=== PATIENT | male | born 1940 | race Caucasian/White ===

== ENCOUNTER 2017-04-09 16:46 | Inpatient (IN) | payer MEDICARE, OTHER ==
[~2017-04-09] VITALS: Ht 172.7 cm; Wt 120.2 kg
[2017-04-09 18:03] LABS: Basophils # (auto) 0.1 uL; Eosinophils # (auto) 0 uL; Hemoglobin 11.7 g/dL (13.5-17.5); Lymphocytes # (auto) 0.9 uL; Neutrophils # (auto) 5.9 uL; Nucleated Red Blood Cells % 0.2 %; White Blood Cell 7.9 10^3/uL (4.4-10.8)
[2017-04-09 18:04] LABS: Lymphocytes % (auto) 11.2 % (10.0-50.0); Mean Corpuscular Hemoglobin 25.3 pg (28.0-32.0); Mean Corpuscular Hgb Conc. 32.4 g/dL (32.0-36.0); Mean Corpuscular Volume 78.2 fL (80.0-100.0); Monocytes % (auto) 12.8 % (0.0-12.0); Platelet Count (auto) 183 10^3/uL (140-450)
[2017-04-09 18:21] LABS: Albumin 3.2 g/dL (3.4-5.0); BUN/Creatinine Ratio 14.4; Calcium 7.7 mg/dL (8.5-10.1); Magnesium 1.7 mg/dL (1.6-2.6); Potassium 3.1 mmol/L (3.5-5.1)
[2017-04-09 18:26] LABS: Bilirubin, Total 1.5 mg/dL (0.2-1.0)
[2017-04-09] MEDS ORDERED: SODIUM CHLORIDE 0.9% 1,000 ML IV ONE (18:36)
[2017-04-09] MEDS ORDERED: MORPHINE SULF INJ 2 MG/ML SYRINGE 1ML IV PRN (21:45)
[2017-04-09] MEDS ORDERED: ONDANSETRON HCL 4 MG/2 ML VIAL IV PRN (21:45)
[2017-04-09] MEDS ORDERED: NITROGLYCERIN 0.4 MG SL TAB SL PRN (21:45)
[2017-04-09] MEDS ORDERED: DEXTROSE (50%) 50ML SYRG IV PRN (21:45)
[2017-04-09] MEDS ORDERED: ACETAMINOPHEN 325 MG TAB PO PRN (21:45)
[2017-04-09] MEDS ORDERED: TEMAZEPAM 15 MG CAP PO PRN (21:45)
[2017-04-09] MEDS ORDERED: cefTRIAXone 1GM/10ml IVPUSH 10 ML IV ONE (21:45)
[2017-04-09] MEDS ORDERED: HYDROcodone-ACET 5/325MG TAB PO PRN (21:45)
[2017-04-09 22:00] VITALS: BP 119/68
[2017-04-09] MEDS ORDERED: POTASSIUM CHL 20 Meq TABLET PO ONE (22:00)
[2017-04-09] MEDS: CARVEDILOL 3.125 MG TAB PO SCH (22:00)
[2017-04-09 22:47] LABS: INR 2.33 (0.9-1.15); Partial Thromboplastin Time 39.1 sec (22.64-33.71); Prothrombin Time 25.6 sec (9.37-12.3)
[2017-04-09] MEDS: PRAVASTATIN SODIUM 20 MG TAB PO SCH (22:53)
[2017-04-10] VITALS (9 sets, daily range): BP systolic 75–141; BP diastolic 43–84
[2017-04-10] MEDS: InsuLIN REG 1unit/0.01ml Soln (100units/ml) SC SCH ×5 (00:40→21:42)
[2017-04-10] MEDS: ACCU-CHEK COMFORT CURVE STRIP VI SCH ×5 (01:05→21:42)
[2017-04-10] MEDS: glipiZIDE 5 MG TAB PO SCH (05:41)
[2017-04-10 06:29] LABS: Basophils # (auto) 0.1 uL; Eosinophils # (auto) 0 uL; Monocytes # (auto) 1.1 uL; Platelet Count (auto) 159 10^3/uL (140-450)
[2017-04-10 06:32] LABS: Basophils % (auto) 1.1 % (0.0-2.0); Eosinophils % (auto) 0.1 % (0.0-7.0); Hematocrit 33.4 % (41.0-53.0); Lymphocytes # (auto) 0.9 uL; Lymphocytes % (auto) 12.9 % (10.0-50.0); Mean Corpuscular Hemoglobin 25.8 pg (28.0-32.0); Mean Corpuscular Hgb Conc. 33.1 g/dL (32.0-36.0); Mean Corpuscular Volume 77.9 fL (80.0-100.0); Monocytes % (auto) 15.9 % (0.0-12.0); Neutrophils # (auto) 4.8 uL; Nucleated Red Blood Cells % 0.1 %; Red Blood Cells 4.28 10^6/uL (4.5-5.90); White Blood Cell 6.9 10^3/uL (4.4-10.8)
[2017-04-10 06:33] LABS: Red Cell Distribution Width 20.3 % (11.8-14.3)
[2017-04-10 06:43] LABS: Albumin 3.1 g/dL (3.4-5.0); BUN/Creatinine Ratio 17.8; Calcium 8.1 mg/dL (8.5-10.1); Potassium 3.2 mmol/L (3.5-5.1)
[2017-04-10 06:45] LABS: Bilirubin, Total 1.1 mg/dL (0.2-1.0); Total Protein 7.3 g/dL (6.4-8.2)
[2017-04-10] MEDS: LISINOPRIL 10 MG TAB PO SCH (10:00)
[2017-04-10] MEDS: ISOSORBIDE MONONITRATE 60 MG TAB PO SCH (10:00)
[2017-04-10] MEDS: HCTZ 25 MG TAB PO SCH (10:00)
[2017-04-10] MEDS ORDERED: PANTOPRAZOLE 40 MG TAB PO SCH (10:00)
[2017-04-10] MEDS: cefTRIAXone 1GM/10ml IVPUSH 10 ML IV SCH (10:34)
[2017-04-10] MEDS: CARVEDILOL 3.125 MG TAB PO SCH ×2 (10:39→21:42)
[2017-04-10] MEDS ORDERED: WARF5TAB71 PO (10:50)
[2017-04-10] MEDS ORDERED: WARF2.5T39 PO (10:50)
[2017-04-10] MEDS ORDERED: LORazepam 2MG/ML-1ML VIAL IV PRN ×2 (17:00)
[2017-04-10] MEDS ORDERED: WARFARIN SODIUM 5 MG TAB PO ONE (17:00)
[2017-04-10] MEDS: ALBUTEROL SULF 2.5 MG/0.5ML(0.5%) NEB SOLN NEB SCH (19:27)
[2017-04-10] MEDS: PRAVASTATIN SODIUM 20 MG TAB PO SCH (21:42)
[2017-04-10] MEDS ORDERED: ATROPINE SULFATE 0.4 MG/1 ML VIAL IV ONE (23:00)
[2017-04-10] MEDS: PROPOFOL 100 ML IV SCH (23:03)
[2017-04-10] MEDS ORDERED: PROPOFOL 100 ML IV ONE (23:03)
[2017-04-10 23:08] LABS: Basophils # (auto) 0.1 uL; Eosinophils # (auto) 0 uL; Eosinophils % (auto) 0.2 % (0.0-7.0); Monocytes # (auto) 1.8 uL
[2017-04-10 23:10] LABS: Basophils % (auto) 0.8 % (0.0-2.0); Hematocrit 39.9 % (41.0-53.0); Hemoglobin 12.4 g/dL (13.5-17.5); Lymphocytes % (auto) 31.9 % (10.0-50.0); Mean Corpuscular Hemoglobin 25.3 pg (28.0-32.0); Mean Corpuscular Hgb Conc. 31.2 g/dL (32.0-36.0); Mean Corpuscular Volume 81.2 fL (80.0-100.0); Monocytes % (auto) 14.3 % (0.0-12.0); Neutrophils # (auto) 6.7 uL; Neutrophils % (auto) 52.8 % (37.0-80.0); Nucleated Red Blood Cells % 0.1 %; Platelet Count (auto) 192 10^3/uL (140-450); Red Blood Cells 4.91 10^6/uL (4.5-5.90); White Blood Cell 12.6 10^3/uL (4.4-10.8)
[2017-04-10 23:41] LABS: Red Cell Distribution Width 21.1 % (11.8-14.3)
[2017-04-10 23:46] LABS: Potassium 3.9 mmol/L (3.5-5.1)
[2017-04-10 23:47] LABS: Albumin 3.2 g/dL (3.4-5.0); BUN/Creatinine Ratio 14.1; Bilirubin, Total 0.9 mg/dL (0.2-1.0); Calcium 8.5 mg/dL (8.5-10.1); Total Protein 8.1 g/dL (6.4-8.2)
[2017-04-10] MEDS ORDERED: MIDAZOLAM DRIP 100 mg/100mL NS 100 ML IV ONE (23:59)
[2017-04-11] VITALS (88 sets, daily range): BP systolic 64–135; BP diastolic 41–86
[2017-04-11] MEDS ORDERED: MIDAZOLAM DRIP 100 mg/100mL NS 100 ML IV SCH (00:39)
[2017-04-11] MEDS: NOREPINEPHRINE 8 MG/250ML KIT 250 ML IV SCH (00:39)
[2017-04-11] MEDS: SODIUM CHLORIDE 0.9% 1,000 ML IV SCH ×3 (01:00→21:00)
[2017-04-11] MEDS ORDERED: ACCU-CHEK COMFORT CURVE STRIP VI ONE (01:00)
[2017-04-11] MEDS: ACETAMINOPHEN 650 mg PER 20 mL UD GT PRN (03:30)
[2017-04-11] MEDS: InsuLIN REG 1unit/0.01ml Soln (100units/ml) SC SCH ×3 (06:00→18:22)
[2017-04-11] MEDS: ALBUTEROL SULF 2.5 MG/0.5ML(0.5%) NEB SOLN NEB SCH ×3 (06:00→22:17)
[2017-04-11] MEDS: ACCU-CHEK COMFORT CURVE STRIP VI SCH ×3 (06:00→18:00)
[2017-04-11 06:04] LABS: Basophils # (auto) 0 uL; Basophils % (auto) 0.3 % (0.0-2.0); Eosinophils # (auto) 0 uL; Nucleated Red Blood Cells % 0.1 %
[2017-04-11 06:07] LABS: Hematocrit 37.2 % (41.0-53.0); Hemoglobin 11.9 g/dL (13.5-17.5); Lymphocytes % (auto) 10.5 % (10.0-50.0); Mean Corpuscular Hemoglobin 25.8 pg (28.0-32.0); Mean Corpuscular Volume 80.7 fL (80.0-100.0); Monocytes # (auto) 0.8 uL; Monocytes % (auto) 8.9 % (0.0-12.0); Neutrophils # (auto) 7.3 uL; Neutrophils % (auto) 80.3 % (37.0-80.0); Platelet Count (auto) 120 10^3/uL (140-450); Red Blood Cells 4.61 10^6/uL (4.5-5.90); White Blood Cell 9.1 10^3/uL (4.4-10.8)
[2017-04-11 06:15] LABS: INR 1.77 (0.9-1.15); Partial Thromboplastin Time 36.7 sec (22.64-33.71); Prothrombin Time 19.4 sec (9.37-12.3)
[2017-04-11 06:16] LABS: Red Cell Distribution Width 20.7 % (11.8-14.3)
[2017-04-11] MEDS: MIDAZOLAM DRIP 100 mg/100mL NS 100 ML IV SCH ×2 (06:30→16:39)
[2017-04-11 06:47] LABS: % Iron Saturation 4.2 % (20-55)
[2017-04-11] MEDS: glipiZIDE 5 MG TAB PO SCH (07:00)
[2017-04-11] MEDS: cefTRIAXone 1GM/10ml IVPUSH 10 ML IV SCH (08:54)
[2017-04-11 09:03] LABS: Potassium 3.2 mmol/L (3.5-5.1)
[2017-04-11 09:04] LABS: BUN/Creatinine Ratio 19.2; Bilirubin, Total 0.6 mg/dL (0.2-1.0); Calcium 7.5 mg/dL (8.5-10.1); Total Protein 7.1 g/dL (6.4-8.2)
[2017-04-11 09:05] LABS: Albumin 2.9 g/dL (3.4-5.0)
[2017-04-11] MEDS ORDERED: POTASSIUM CHLORIDE 40 MEQ, LIDOCAINE 1% (LOCAL ANESTH.) 4 ML in SODIUM CHL 0.9% 100 ML IV ONE (09:30)
[2017-04-11] MEDS: CARVEDILOL 3.125 MG TAB PO SCH ×2 (09:34→22:00)
[2017-04-11] MEDS: HCTZ 25 MG TAB PO SCH (09:34)
[2017-04-11] MEDS: PANTOPRAZOLE 40 MG/10 ML VIAL IV SCH (09:34)
[2017-04-11] MEDS: LISINOPRIL 10 MG TAB PO SCH (09:35)
[2017-04-11] MEDS: ISOSORBIDE MONONITRATE 60 MG TAB PO SCH (09:35)
[2017-04-11 09:50] LABS: Alcohol, Urine < 3.0 mg/dL (0-5); Amphetamine Screen, Urine NEGATIVE (NEGATIVE); Barbiturate Scree,Urine NEGATIVE (NEGATIVE); Benzodiazephine Screen, Urine POSITIVE (NEGATIVE); Cannabinoid Screen, Urine NEGATIVE (NEGATIVE); Cocaine Screen, Urine NEGATIVE (NEGATIVE); Opiate Scree,Urine NEGATIVE (NEGATIVE); Phencyclidine Screen, Urine NEGATIVE (NEGATIVE)
[2017-04-11] MEDS: LINEZOLID 600MG/300ML 300 ML IV SCH (14:37)
[2017-04-11] MEDS ORDERED: WARFARIN SODIUM 2.5 MG TAB PO ONE (17:00)
[2017-04-11] MEDS: PIPERACILLIN-TAZOB 3.375GM 50-150ml IV SCH (18:40)
[2017-04-11] MEDS: PRAVASTATIN SODIUM 20 MG TAB PO SCH (22:00)
[2017-04-12] VITALS (92 sets, daily range): BP systolic 82–140; BP diastolic 31–90
[2017-04-12] MEDS: ACCU-CHEK COMFORT CURVE STRIP VI SCH ×4 (00:17→18:07)
[2017-04-12] MEDS: PIPERACILLIN-TAZOB 3.375GM 50-150ml IV SCH ×4 (00:17→17:55)
[2017-04-12] MEDS: PROPOFOL 100 ML IV SCH (00:23)
[2017-04-12] MEDS: NOREPINEPHRINE 8 MG/250ML KIT 250 ML IV SCH (00:39)
[2017-04-12] MEDS: LINEZOLID 600MG/300ML 300 ML IV SCH ×2 (03:00→15:54)
[2017-04-12 04:29] LABS: Basophils # (auto) 0 uL; Eosinophils # (auto) 0 uL; Monocytes # (auto) 0.7 uL; White Blood Cell 6.4 10^3/uL (4.4-10.8)
[2017-04-12 04:32] LABS: Basophils % (auto) 0.6 % (0.0-2.0); Eosinophils % (auto) 0.5 % (0.0-7.0); Hematocrit 36.7 % (41.0-53.0); Lymphocytes # (auto) 1.3 uL; Lymphocytes % (auto) 20.2 % (10.0-50.0); Mean Corpuscular Hemoglobin 25.7 pg (28.0-32.0); Mean Corpuscular Hgb Conc. 32.8 g/dL (32.0-36.0); Mean Corpuscular Volume 78.4 fL (80.0-100.0); Monocytes % (auto) 11.3 % (0.0-12.0); Neutrophils # (auto) 4.3 uL; Neutrophils % (auto) 67.4 % (37.0-80.0); Nucleated Red Blood Cells % 0.2 %; Platelet Count (auto) 108 10^3/uL (140-450); Red Blood Cells 4.68 10^6/uL (4.5-5.90)
[2017-04-12 04:37] LABS: Calcium 7.9 mg/dL (8.5-10.1); Potassium 3.7 mmol/L (3.5-5.1)
[2017-04-12 04:38] LABS: Red Cell Distribution Width 20.8 % (11.8-14.3)
[2017-04-12 04:39] LABS: BUN/Creatinine Ratio 19.2
[2017-04-12 04:47] LABS: INR 1.92 (0.9-1.15); Partial Thromboplastin Time 40.5 sec (22.64-33.71); Prothrombin Time 21.1 sec (9.37-12.3)
[2017-04-12] MEDS: InsuLIN REG 1unit/0.01ml Soln (100units/ml) SC SCH ×4 (06:00→18:00)
[2017-04-12] MEDS: ALBUTEROL SULF 2.5 MG/0.5ML(0.5%) NEB SOLN NEB SCH ×3 (06:12→22:01)
[2017-04-12] MEDS: glipiZIDE 5 MG TAB PO SCH (06:41)
[2017-04-12] MEDS: SODIUM CHLORIDE 0.9% 1,000 ML IV SCH ×2 (06:44→17:09)
[2017-04-12] MEDS ORDERED: CHLORHEXIDINE 0.12% ORAL rinse 473ML MT ONE (08:29)
[2017-04-12] MEDS: ACETAMINOPHEN 650 mg PER 20 mL UD GT PRN (08:30)
[2017-04-12] MEDS: LISINOPRIL 10 MG TAB PO SCH (10:00)
[2017-04-12] MEDS: HCTZ 25 MG TAB PO SCH (10:00)
[2017-04-12] MEDS: ISOSORBIDE MONONITRATE 60 MG TAB PO SCH (10:00)
[2017-04-12] MEDS: PANTOPRAZOLE 40 MG/10 ML VIAL IV SCH (10:29)
[2017-04-12] MEDS: CARVEDILOL 3.125 MG TAB PO SCH ×2 (10:29→22:18)
[2017-04-12] MEDS ORDERED: OSELTAMIVIR 75 MG CAP PO ONE (13:00)
[2017-04-12] MEDS ORDERED: MIDAZOLAM HCL 1MG/1ML-2 ML VIAL IV PRN (13:00)
[2017-04-12] MEDS ORDERED: WARFARIN SODIUM 5 MG TAB PO SCH (17:00)
[2017-04-12] MEDS: PRAVASTATIN SODIUM 20 MG TAB PO SCH (22:18)
[2017-04-12] MEDS: OSELTAMIVIR 75 MG CAP PO SCH (22:18)
[2017-04-13] VITALS (60 sets, daily range): BP systolic 111–143; BP diastolic 58–94
[2017-04-13] MEDS: MIDAZOLAM DRIP 100 mg/100mL NS 100 ML IV SCH
[2017-04-13] MEDS: NOREPINEPHRINE 8 MG/250ML KIT 250 ML IV SCH (00:39)
[2017-04-13] MEDS: SODIUM CHLORIDE 0.9% 1,000 ML IV SCH ×3 (03:00→23:59)
[2017-04-13 03:51] LABS: Basophils # (auto) 0 uL; Eosinophils # (auto) 0 uL; Hematocrit 34.3 % (41.0-53.0); Hemoglobin 11.2 g/dL (13.5-17.5); Mean Corpuscular Hgb Conc. 32.5 g/dL (32.0-36.0); Nucleated Red Blood Cells % 0.1 %; White Blood Cell 6.2 10^3/uL (4.4-10.8)
[2017-04-13 03:53] LABS: Basophils % (auto) 0.6 % (0.0-2.0); Eosinophils % (auto) 0.6 % (0.0-7.0); Lymphocytes # (auto) 1.5 uL; Lymphocytes % (auto) 23.8 % (10.0-50.0); Mean Corpuscular Hemoglobin 25.6 pg (28.0-32.0); Mean Corpuscular Volume 78.6 fL (80.0-100.0); Monocytes # (auto) 0.5 uL; Monocytes % (auto) 8.2 % (0.0-12.0); Neutrophils # (auto) 4.1 uL; Neutrophils % (auto) 66.8 % (37.0-80.0); Platelet Count (auto) 108 10^3/uL (140-450); Red Blood Cells 4.36 10^6/uL (4.5-5.90)
[2017-04-13] MEDS: LINEZOLID 600MG/300ML 300 ML IV SCH ×2 (03:57→15:12)
[2017-04-13 03:58] LABS: INR 2.94 (0.9-1.15); Partial Thromboplastin Time 46.9 sec (22.64-33.71); Prothrombin Time 32.4 sec (9.37-12.3)
[2017-04-13 04:18] LABS: Red Cell Distribution Width 21.1 % (11.8-14.3)
[2017-04-13 04:58] LABS: Calcium 7.8 mg/dL (8.5-10.1); Potassium 3.6 mmol/L (3.5-5.1)
[2017-04-13] MEDS: ACCU-CHEK COMFORT CURVE STRIP VI SCH ×4 (05:27→17:47)
[2017-04-13] MEDS: InsuLIN REG 1unit/0.01ml Soln (100units/ml) SC SCH ×5 (05:27→18:00)
[2017-04-13] MEDS: ALBUTEROL SULF 2.5 MG/0.5ML(0.5%) NEB SOLN NEB SCH ×3 (05:45→22:26)
[2017-04-13] MEDS: PIPERACILLIN-TAZOB 3.375GM 50-150ml IV SCH ×4 (06:11→17:47)
[2017-04-13] MEDS: glipiZIDE 5 MG TAB PO SCH (07:53)
[2017-04-13] MEDS: CARVEDILOL 3.125 MG TAB PO SCH ×2 (09:45→23:01)
[2017-04-13] MEDS: LISINOPRIL 10 MG TAB PO SCH (09:45)
[2017-04-13] MEDS: PANTOPRAZOLE 40 MG/10 ML VIAL IV SCH (09:45)
[2017-04-13] MEDS: ISOSORBIDE MONONITRATE 60 MG TAB PO SCH (09:45)
[2017-04-13] MEDS: HCTZ 25 MG TAB PO SCH (09:45)
[2017-04-13] MEDS: OSELTAMIVIR 75 MG CAP PO SCH ×2 (09:45→23:01)
[2017-04-13] MEDS: MIDAZOLAM DRIP 50 mg/50mL 50 ML IV SCH (11:58)
[2017-04-13] MEDS ORDERED: Diabetisource AC 1 Liter GT SCH (14:45)
[2017-04-13] MEDS: PRAVASTATIN SODIUM 20 MG TAB PO SCH (23:01)
[2017-04-14] VITALS (100 sets, daily range): BP systolic 81–157; BP diastolic 34–127
[2017-04-14] MEDS: ACCU-CHEK COMFORT CURVE STRIP VI SCH ×4 (00:20→17:59)
[2017-04-14] MEDS: PIPERACILLIN-TAZOB 3.375GM 50-150ml IV SCH ×4 (00:20→17:59)
[2017-04-14] MEDS: NOREPINEPHRINE 8 MG/250ML KIT 250 ML IV SCH (00:39)
[2017-04-14] MEDS: LINEZOLID 600MG/300ML 300 ML IV SCH ×2 (03:00→15:32)
[2017-04-14 05:58] LABS: Partial Thromboplastin Time 52.4 sec (22.64-33.71); Prothrombin Time 44.2 sec (9.37-12.3)
[2017-04-14] MEDS: InsuLIN REG 1unit/0.01ml Soln (100units/ml) SC SCH ×4 (06:00→20:00)
[2017-04-14] MEDS: ALBUTEROL SULF 2.5 MG/0.5ML(0.5%) NEB SOLN NEB SCH ×2 (07:16→22:18)
[2017-04-14] MEDS: SODIUM CHLORIDE 0.9% 1,000 ML IV SCH ×2 (09:00→19:00)
[2017-04-14] MEDS: PANTOPRAZOLE 40 MG/10 ML VIAL IV SCH (10:38)
[2017-04-14] MEDS: HCTZ 25 MG TAB PO SCH (10:39)
[2017-04-14] MEDS: CARVEDILOL 3.125 MG TAB PO SCH ×2 (10:39→22:29)
[2017-04-14] MEDS: OSELTAMIVIR 75 MG CAP PO SCH ×2 (10:40→22:29)
[2017-04-14 11:06] LABS: Basophils # (auto) 0 uL; Eosinophils # (auto) 0 uL; Neutrophils # (auto) 3.7 uL; Nucleated Red Blood Cells % 0.1 %; White Blood Cell 5.7 10^3/uL (4.4-10.8)
[2017-04-14 11:08] LABS: Basophils % (auto) 0.5 % (0.0-2.0); Eosinophils % (auto) 0.5 % (0.0-7.0); Hematocrit 33.5 % (41.0-53.0); Hemoglobin 10.9 g/dL (13.5-17.5); Lymphocytes # (auto) 1.5 uL; Lymphocytes % (auto) 26.2 % (10.0-50.0); Mean Corpuscular Hemoglobin 25.4 pg (28.0-32.0); Mean Corpuscular Hgb Conc. 32.5 g/dL (32.0-36.0); Mean Corpuscular Volume 78.3 fL (80.0-100.0); Monocytes # (auto) 0.5 uL; Monocytes % (auto) 7.9 % (0.0-12.0); Neutrophils % (auto) 64.9 % (37.0-80.0); Platelet Count (auto) 106 10^3/uL (140-450); Red Blood Cells 4.27 10^6/uL (4.5-5.90); Red Cell Distribution Width 20.2 % (11.8-14.3)
[2017-04-14 11:27] LABS: Albumin 2.3 g/dL (3.4-5.0); BUN/Creatinine Ratio 14.2; Bilirubin, Total 1.1 mg/dL (0.2-1.0); Calcium 7.5 mg/dL (8.5-10.1); Potassium 3.4 mmol/L (3.5-5.1); Total Protein 6.4 g/dL (6.4-8.2)
[2017-04-14] MEDS: MIDAZOLAM DRIP 50 mg/50mL 50 ML IV SCH ×2 (13:30→22:29)
[2017-04-14] MEDS ORDERED: FUROSEMIDE 20 MG/2 ML VIAL IV ONE (13:30)
[2017-04-14] MEDS ORDERED: POTASSIUM CHL 10% (20 MEQ/15ML) 15ml ORAL SOLN GT ONE (13:45)
[2017-04-14] MEDS: ISOSORBIDE MONONITRATE 60 MG TAB PO SCH (14:56)
[2017-04-14] MEDS: LISINOPRIL 10 MG TAB PO SCH (14:56)
[2017-04-14] MEDS: PRAVASTATIN SODIUM 20 MG TAB PO SCH (22:00)
[2017-04-15] VITALS (106 sets, daily range): BP systolic 93–171; BP diastolic 48–107
[2017-04-15] MEDS: NOREPINEPHRINE 8 MG/250ML KIT 250 ML IV SCH (00:39)
[2017-04-15] MEDS: LINEZOLID 600MG/300ML 300 ML IV SCH ×2 (03:00→14:38)
[2017-04-15 04:38] LABS: Basophils # (auto) 0 uL; Eosinophils # (auto) 0.1 uL; Mean Corpuscular Volume 78.6 fL (80.0-100.0)
[2017-04-15 04:42] LABS: Basophils % (auto) 0.4 % (0.0-2.0); Eosinophils % (auto) 1.1 % (0.0-7.0); Hematocrit 32.4 % (41.0-53.0); Hemoglobin 10.7 g/dL (13.5-17.5); Lymphocytes # (auto) 1.5 uL; Lymphocytes % (auto) 23.2 % (10.0-50.0); Mean Corpuscular Hemoglobin 25.9 pg (28.0-32.0); Monocytes # (auto) 0.4 uL; Monocytes % (auto) 6.9 % (0.0-12.0); Neutrophils # (auto) 4.4 uL; Neutrophils % (auto) 68.4 % (37.0-80.0); Nucleated Red Blood Cells % 0.1 %; Platelet Count (auto) 118 10^3/uL (140-450); Red Blood Cells 4.12 10^6/uL (4.5-5.90); White Blood Cell 6.4 10^3/uL (4.4-10.8)
[2017-04-15 04:55] LABS: Partial Thromboplastin Time 54.4 sec (22.64-33.71); Prothrombin Time 50.8 sec (9.37-12.3)
[2017-04-15 04:59] LABS: Red Cell Distribution Width 20.3 % (11.8-14.3)
[2017-04-15 05:12] LABS: Albumin 2.2 g/dL (3.4-5.0); BUN/Creatinine Ratio 14.8; Calcium 7.6 mg/dL (8.5-10.1); Magnesium 1.9 mg/dL (1.6-2.6); Potassium 3.4 mmol/L (3.5-5.1)
[2017-04-15 05:15] LABS: Bilirubin, Total 1.1 mg/dL (0.2-1.0); Total Protein 6.4 g/dL (6.4-8.2)
[2017-04-15 05:22] LABS: INR 4.59 (0.9-1.15)
[2017-04-15] MEDS: InsuLIN REG 1unit/0.01ml Soln (100units/ml) SC SCH ×4 (06:00→18:28)
[2017-04-15] MEDS: ACCU-CHEK COMFORT CURVE STRIP VI SCH ×4 (06:00→17:23)
[2017-04-15] MEDS: PIPERACILLIN-TAZOB 3.375GM 50-150ml IV SCH ×4 (06:06→17:22)
[2017-04-15] MEDS: ALBUTEROL SULF 2.5 MG/0.5ML(0.5%) NEB SOLN NEB SCH ×3 (06:07→22:20)
[2017-04-15] MEDS ORDERED: POTASSIUM CHL 10% (20 MEQ/15ML) 15ml ORAL SOLN GT ONE (07:30)
[2017-04-15] MEDS: CARVEDILOL 3.125 MG TAB PO SCH ×2 (08:38→22:13)
[2017-04-15] MEDS: HCTZ 25 MG TAB PO SCH (08:38)
[2017-04-15] MEDS: PANTOPRAZOLE 40 MG/10 ML VIAL IV SCH (08:38)
[2017-04-15] MEDS: LISINOPRIL 10 MG TAB PO SCH (08:39)
[2017-04-15] MEDS: OSELTAMIVIR 75 MG CAP PO SCH ×2 (08:39→22:13)
[2017-04-15] MEDS: ISOSORBIDE MONONITRATE 60 MG TAB PO SCH (14:10)
[2017-04-15] MEDS: SODIUM CHLORIDE 0.9% 1,000 ML IV SCH ×2 (14:38)
[2017-04-15] MEDS ORDERED: PHYTONADIONE (VIT K)10 MG/ML 1ML VIAL SUBCUT ONE (17:15)
[2017-04-15] MEDS: MAGNESIUM SULFATE 1GM/100ML 100 ML IV SCH ×2 (18:28→21:16)
[2017-04-15] MEDS: MIDAZOLAM DRIP 50 mg/50mL 50 ML IV SCH (21:17)
[2017-04-15] MEDS: PRAVASTATIN SODIUM 20 MG TAB PO SCH (22:13)
[2017-04-16] VITALS (71 sets, daily range): BP systolic 110–162; BP diastolic 63–103
[2017-04-16] MEDS: NOREPINEPHRINE 8 MG/250ML KIT 250 ML IV SCH (00:39)
[2017-04-16] MEDS: PIPERACILLIN-TAZOB 3.375GM 50-150ml IV SCH ×4 (00:48→18:02)
[2017-04-16] MEDS: MIDAZOLAM DRIP 50 mg/50mL 50 ML IV SCH ×2 (00:52→05:25)
[2017-04-16] MEDS: SODIUM CHLORIDE 0.9% 1,000 ML IV SCH ×3 (01:35→21:00)
[2017-04-16] MEDS: LINEZOLID 600MG/300ML 300 ML IV SCH ×2 (02:49→15:57)
[2017-04-16 04:23] LABS: Basophils # (auto) 0 uL; Eosinophils # (auto) 0.1 uL; Hemoglobin 11.2 g/dL (13.5-17.5); Lymphocytes # (auto) 1.3 uL; Monocytes # (auto) 0.6 uL; Nucleated Red Blood Cells % 0.1 %
[2017-04-16 04:25] LABS: Basophils % (auto) 0.4 % (0.0-2.0); Eosinophils % (auto) 0.7 % (0.0-7.0); Hematocrit 34.4 % (41.0-53.0); Mean Corpuscular Hemoglobin 25.6 pg (28.0-32.0); Mean Corpuscular Hgb Conc. 32.6 g/dL (32.0-36.0); Mean Corpuscular Volume 78.7 fL (80.0-100.0); Monocytes % (auto) 7.4 % (0.0-12.0); Neutrophils # (auto) 5.9 uL; Neutrophils % (auto) 75.5 % (37.0-80.0); Platelet Count (auto) 122 10^3/uL (140-450); Red Blood Cells 4.36 10^6/uL (4.5-5.90); White Blood Cell 7.9 10^3/uL (4.4-10.8)
[2017-04-16 04:30] LABS: Red Cell Distribution Width 20.4 % (11.8-14.3)
[2017-04-16 04:44] LABS: Partial Thromboplastin Time 53.8 sec (22.64-33.71); Prothrombin Time 44.3 sec (9.37-12.3)
[2017-04-16 04:56] LABS: INR 4.01 (0.9-1.15)
[2017-04-16 05:21] LABS: Albumin 2.3 g/dL (3.4-5.0); BUN/Creatinine Ratio 11.1; Bilirubin, Total 1.3 mg/dL (0.2-1.0); Calcium 7.6 mg/dL (8.5-10.1); Potassium 3.3 mmol/L (3.5-5.1); Total Protein 6.6 g/dL (6.4-8.2)
[2017-04-16] MEDS: ACCU-CHEK COMFORT CURVE STRIP VI SCH ×4 (05:53→18:02)
[2017-04-16] MEDS: InsuLIN REG 1unit/0.01ml Soln (100units/ml) SC SCH ×4 (05:54→18:02)
[2017-04-16] MEDS: ALBUTEROL SULF 2.5 MG/0.5ML(0.5%) NEB SOLN NEB SCH ×3 (05:54→18:22)
[2017-04-16] MEDS: ISOSORBIDE MONONITRATE 60 MG TAB PO SCH (10:00)
[2017-04-16] MEDS: OSELTAMIVIR 75 MG CAP PO SCH ×2 (11:09→22:50)
[2017-04-16] MEDS: LISINOPRIL 10 MG TAB PO SCH (11:10)
[2017-04-16] MEDS: CARVEDILOL 3.125 MG TAB PO SCH ×2 (11:10→22:49)
[2017-04-16] MEDS: PANTOPRAZOLE 40 MG/10 ML VIAL IV SCH (11:10)
[2017-04-16] MEDS: HCTZ 25 MG TAB PO SCH (11:10)
[2017-04-16] MEDS: POTASSIUM CHL 20MEQ/50ML 50 ML IV SCH ×2 (13:18→16:41)
[2017-04-16] MEDS: PRAVASTATIN SODIUM 20 MG TAB PO SCH (22:50)
[2017-04-17] VITALS (38 sets, daily range): BP systolic 101–157; BP diastolic 52–103
[2017-04-17] MEDS: PIPERACILLIN-TAZOB 3.375GM 50-150ml IV SCH (00:07)
[2017-04-17] MEDS: InsuLIN REG 1unit/0.01ml Soln (100units/ml) SC SCH ×4 (00:08→17:54)
[2017-04-17] MEDS: NOREPINEPHRINE 8 MG/250ML KIT 250 ML IV SCH (00:08)
[2017-04-17] MEDS: ACCU-CHEK COMFORT CURVE STRIP VI SCH ×3 (00:08→17:54)
[2017-04-17 03:23] LABS: Basophils # (auto) 0 uL; Eosinophils # (auto) 0.1 uL; Eosinophils % (auto) 0.8 % (0.0-7.0); Mean Corpuscular Hemoglobin 25.5 pg (28.0-32.0); Monocytes # (auto) 0.5 uL; Neutrophils # (auto) 6.2 uL; White Blood Cell 7.9 10^3/uL (4.4-10.8)
[2017-04-17 03:25] LABS: Basophils % (auto) 0.4 % (0.0-2.0); Hematocrit 31.6 % (41.0-53.0); Hemoglobin 10.3 g/dL (13.5-17.5); Mean Corpuscular Hgb Conc. 32.7 g/dL (32.0-36.0); Monocytes % (auto) 6.6 % (0.0-12.0); Neutrophils % (auto) 79.2 % (37.0-80.0); Platelet Count (auto) 144 10^3/uL (140-450); Red Blood Cells 4.06 10^6/uL (4.5-5.90)
[2017-04-17] MEDS: LINEZOLID 600MG/300ML 300 ML IV SCH (03:26)
[2017-04-17 03:32] LABS: Red Cell Distribution Width 20.4 % (11.8-14.3)
[2017-04-17 03:49] LABS: INR 2.42 (0.9-1.15); Partial Thromboplastin Time 46.8 sec (22.64-33.71); Prothrombin Time 26.6 sec (9.37-12.3)
[2017-04-17] MEDS: ALBUTEROL SULF 2.5 MG/0.5ML(0.5%) NEB SOLN NEB SCH ×3 (06:36→22:36)
[2017-04-17 08:34] LABS: BUN/Creatinine Ratio 13.1; Calcium 7.9 mg/dL (8.5-10.1); Potassium 3.2 mmol/L (3.5-5.1)
[2017-04-17] MEDS ORDERED: FUROSEMIDE 40 MG/4 ML VIAL ONE (10:35)
[2017-04-17] MEDS ORDERED: MORPHINE SULF INJ 2 MG/ML SYRINGE 1ML IV PRN (10:45)
[2017-04-17] MEDS ORDERED: HYDROcodone-ACET 5/325MG TAB PO PRN (10:45)
[2017-04-17] MEDS ORDERED: TEMAZEPAM 15 MG CAP PO PRN (10:45)
[2017-04-17] MEDS: CARVEDILOL 3.125 MG TAB PO SCH (11:00)
[2017-04-17] MEDS: PANTOPRAZOLE 40 MG/10 ML VIAL IV SCH (11:00)
[2017-04-17] MEDS: HCTZ 25 MG TAB PO SCH (11:01)
[2017-04-17] MEDS: LISINOPRIL 10 MG TAB PO SCH (11:01)
[2017-04-17] MEDS: OSELTAMIVIR 75 MG CAP PO SCH (11:01)
[2017-04-17] MEDS: ISOSORBIDE MONONITRATE 60 MG TAB PO SCH (11:01)
[2017-04-17] MEDS: MIDAZOLAM DRIP 50 mg/50mL 50 ML IV SCH (11:02)
[2017-04-17] MEDS ORDERED: POTASSIUM CHLORIDE 40 MEQ, LIDOCAINE 1% (LOCAL ANESTH.) 4 ML in SODIUM CHL 0.9% 100 ML IV ONE (11:30)
[2017-04-17] MEDS ORDERED: WARFARIN SODIUM 2.5 MG TAB PO ONE (17:00)
[2017-04-17] MEDS: PRAVASTATIN SODIUM 20 MG TAB PO SCH (22:59)
[2017-04-17] MEDS: CARVEDILOL 12.5 MG TAB PO SCH (22:59)
[2017-04-18] VITALS (11 sets, daily range): BP systolic 93–151; BP diastolic 56–97
[2017-04-18] MEDS: NOREPINEPHRINE 8 MG/250ML KIT 250 ML IV SCH (00:39)
[2017-04-18] MEDS: InsuLIN REG 1unit/0.01ml Soln (100units/ml) SC SCH ×5 (03:48→23:48)
[2017-04-18] MEDS: ACCU-CHEK COMFORT CURVE STRIP VI SCH ×5 (03:49→23:47)
[2017-04-18 04:10] LABS: Basophils # (auto) 0 uL; Eosinophils # (auto) 0.2 uL; Lymphocytes # (auto) 1.2 uL; Monocytes # (auto) 0.7 uL
[2017-04-18 04:12] LABS: Basophils % (auto) 0.4 % (0.0-2.0); Hematocrit 33.6 % (41.0-53.0); Lymphocytes % (auto) 13.7 % (10.0-50.0); Mean Corpuscular Hemoglobin 25.6 pg (28.0-32.0); Mean Corpuscular Hgb Conc. 32.7 g/dL (32.0-36.0); Mean Corpuscular Volume 78.4 fL (80.0-100.0); Monocytes % (auto) 7.9 % (0.0-12.0); Neutrophils # (auto) 6.8 uL; Nucleated Red Blood Cells % 0.1 %; Platelet Count (auto) 167 10^3/uL (140-450); Red Blood Cells 4.28 10^6/uL (4.5-5.90)
[2017-04-18 04:18] LABS: INR 1.4 (0.9-1.15); Partial Thromboplastin Time 36.4 sec (22.64-33.71); Prothrombin Time 15.3 sec (9.37-12.3)
[2017-04-18 04:23] LABS: Red Cell Distribution Width 20.5 % (11.8-14.3)
[2017-04-18 04:25] LABS: Albumin 2.4 g/dL (3.4-5.0); BUN/Creatinine Ratio 13.2; Bilirubin, Total 1.5 mg/dL (0.2-1.0); Calcium 8.2 mg/dL (8.5-10.1); Potassium 3.4 mmol/L (3.5-5.1); Total Protein 7.3 g/dL (6.4-8.2)
[2017-04-18] MEDS ORDERED: MORPHINE SULFATE 10 MG/ML INJ 1ML SDV IV PRN (06:15)
[2017-04-18] MEDS: ALBUTEROL SULF 2.5 MG/0.5ML(0.5%) NEB SOLN NEB SCH (07:10)
[2017-04-18] MEDS: PANTOPRAZOLE 40 MG/10 ML VIAL IV SCH (10:34)
[2017-04-18] MEDS: HCTZ 25 MG TAB PO SCH (10:35)
[2017-04-18] MEDS: LISINOPRIL 10 MG TAB PO SCH (10:35)
[2017-04-18] MEDS: ISOSORBIDE MONONITRATE 60 MG TAB PO SCH (10:36)
[2017-04-18] MEDS: CARVEDILOL 12.5 MG TAB PO SCH ×2 (10:36→21:38)
[2017-04-18] MEDS ORDERED: POTASSIUM CHL 20 Meq TABLET PO ONE (11:45)
[2017-04-18] MEDS ORDERED: LORazepam 2MG/ML-1ML VIAL IV PRN (11:45)
[2017-04-18] MEDS ORDERED: WARFARIN SODIUM 5 MG TAB PO ONE (17:00)
[2017-04-18] MEDS ORDERED: HALOPERIDOL LACTATE 5 MG/ML INJ VIAL IM PRN (20:30)
[2017-04-18] MEDS: SODIUM CHLORIDE 0.9% 1,000 ML IV SCH (21:38)
[2017-04-18] MEDS: PRAVASTATIN SODIUM 20 MG TAB PO SCH (21:39)
[2017-04-18] MEDS: SILDENAFIL CITRATE 20 MG TAB PO SCH (23:49)
[2017-04-19 05:11] VITALS: BP 121/75
[2017-04-19] MEDS: InsuLIN REG 1unit/0.01ml Soln (100units/ml) SC SCH ×4 (05:59→22:09)
[2017-04-19] MEDS: ACCU-CHEK COMFORT CURVE STRIP VI SCH ×4 (05:59→22:09)
[2017-04-19] MEDS: SILDENAFIL CITRATE 20 MG TAB PO SCH ×3 (05:59→21:44)
[2017-04-19 06:22] LABS: Basophils # (auto) 0 uL; Eosinophils # (auto) 0.1 uL; Eosinophils % (auto) 1.8 % (0.0-7.0); Monocytes # (auto) 0.7 uL; Neutrophils # (auto) 6.1 uL
[2017-04-19 06:26] LABS: Basophils % (auto) 0.4 % (0.0-2.0); Hematocrit 32.1 % (41.0-53.0); Hemoglobin 10.3 g/dL (13.5-17.5); Lymphocytes % (auto) 12.5 % (10.0-50.0); Mean Corpuscular Hemoglobin 25.6 pg (28.0-32.0); Mean Corpuscular Hgb Conc. 32.2 g/dL (32.0-36.0); Mean Corpuscular Volume 79.4 fL (80.0-100.0); Monocytes % (auto) 8.3 % (0.0-12.0); Nucleated Red Blood Cells % 0.3 %; Platelet Count (auto) 161 10^3/uL (140-450); Red Blood Cells 4.04 10^6/uL (4.5-5.90); Red Cell Distribution Width 19.7 % (11.8-14.3)
[2017-04-19 06:37] LABS: INR 1.1 (0.9-1.15); Partial Thromboplastin Time 32.3 sec (22.64-33.71)
[2017-04-19 07:50] VITALS: BP 105/54
[2017-04-19] MEDS: CARVEDILOL 12.5 MG TAB PO SCH ×2 (09:51→20:16)
[2017-04-19] MEDS: LISINOPRIL 10 MG TAB PO SCH (09:51)
[2017-04-19] MEDS: PANTOPRAZOLE 40 MG/10 ML VIAL IV SCH (10:08)
[2017-04-19] MEDS: SODIUM CHLORIDE 0.9% 1,000 ML IV SCH (10:53)
[2017-04-19 11:43] VITALS: BP 129/80
[2017-04-19 14:34] LABS: Urine Bacteria NONE SEEN /hpf (None Seen); Urine Blood 3+ /uL (Negative); Urine Mucus FEW (None Seen); Urine Specific Gravity 1.016 (1.001-1.035); Urine WBC 109 /hpf (0 - 3)
[2017-04-19 16:25] VITALS: BP 165/77
[2017-04-19] MEDS: ACETAMINOPHEN 650 mg PER 20 mL UD GT PRN (19:21)
[2017-04-19] MEDS: ALBUTEROL SULF 2.5 MG/0.5ML(0.5%) NEB SOLN NEB PRN (20:22)
[2017-04-19] MEDS: PRAVASTATIN SODIUM 20 MG TAB PO SCH (21:44)
[2017-04-19] MEDS: PRO-STAT 64 30ML PO SCH (21:44)
[2017-04-19] MEDS: Boost Glucose Control 8 Ounces PO SCH (21:44)
[2017-04-19 22:00] VITALS: BP 116/61
[2017-04-20] MEDS: SODIUM CHLORIDE 0.9% 1,000 ML IV SCH (01:04)
[2017-04-20 05:19] VITALS: BP 110/77
[2017-04-20] MEDS: SILDENAFIL CITRATE 20 MG TAB PO SCH ×3 (05:33→22:07)
[2017-04-20] MEDS: InsuLIN REG 1unit/0.01ml Soln (100units/ml) SC SCH ×4 (05:34→23:58)
[2017-04-20] MEDS: ACCU-CHEK COMFORT CURVE STRIP VI SCH ×4 (05:34→23:58)
[2017-04-20 09:00] VITALS: BP 106/50
[2017-04-20] MEDS: PRO-STAT 64 30ML PO SCH ×2 (09:41→22:08)
[2017-04-20] MEDS: Boost Glucose Control 8 Ounces PO SCH ×2 (09:41→22:08)
[2017-04-20] MEDS: LISINOPRIL 10 MG TAB PO SCH (10:00)
[2017-04-20] MEDS ORDERED: COLCHICINE 0.6 MG TAB PO ONE (10:45)
[2017-04-20 10:49] LABS: BUN/Creatinine Ratio 16.3; Calcium 8.5 mg/dL (8.5-10.1); Potassium 3.2 mmol/L (3.5-5.1)
[2017-04-20] MEDS: CARVEDILOL 12.5 MG TAB PO SCH ×2 (10:52→22:08)
[2017-04-20] MEDS ORDERED: POTASSIUM CHL 10% (20 MEQ/15ML) 15ml ORAL SOLN PO ONE (12:00)
[2017-04-20 13:08] LABS: INR 1.42 (0.9-1.15); Partial Thromboplastin Time 30.8 sec (22.64-33.71); Prothrombin Time 15.5 sec (9.37-12.3)
[2017-04-20 13:24] VITALS: BP 124/71
[2017-04-20] MEDS ORDERED: SODIUM CHLORIDE 0.9% 1,000 ML IV ONE (13:45)
[2017-04-20 16:27] VITALS: BP 113/71
[2017-04-20] MEDS ORDERED: WARFARIN SODIUM 2.5 MG TAB PO ONE (17:00)
[2017-04-20] MEDS: PRAVASTATIN SODIUM 20 MG TAB PO SCH (22:08)
[2017-04-20 23:05] VITALS: BP 112/66
[2017-04-21 02:14] VITALS: BP 94/61
[2017-04-21 05:40] VITALS: BP 131/73
[2017-04-21] MEDS: SILDENAFIL CITRATE 20 MG TAB PO SCH ×3 (05:54→21:52)
[2017-04-21] MEDS: ACCU-CHEK COMFORT CURVE STRIP VI SCH ×3 (05:54→18:13)
[2017-04-21] MEDS: InsuLIN REG 1unit/0.01ml Soln (100units/ml) SC SCH ×3 (05:54→18:13)
[2017-04-21] MEDS: ALBUTEROL SULF 2.5 MG/0.5ML(0.5%) NEB SOLN NEB PRN (07:00)
[2017-04-21 07:04] LABS: INR 1.47 (0.9-1.15); Partial Thromboplastin Time 32.9 sec (22.64-33.71); Prothrombin Time 16.1 sec (9.37-12.3)
[2017-04-21 07:06] LABS: BUN/Creatinine Ratio 18.1; Calcium 8.5 mg/dL (8.5-10.1); Potassium 3.3 mmol/L (3.5-5.1)
[2017-04-21 07:52] VITALS: BP 122/67
[2017-04-21] MEDS ORDERED: SODIUM CHLORIDE 0.9% 1,000 ML IV ONE (08:00)
[2017-04-21] MEDS: PRO-STAT 64 30ML PO SCH ×2 (09:57→21:53)
[2017-04-21] MEDS: Boost Glucose Control 8 Ounces PO SCH ×2 (09:57→21:53)
[2017-04-21] MEDS: CARVEDILOL 12.5 MG TAB PO SCH ×2 (10:19→21:53)
[2017-04-21] MEDS ORDERED: COLCHICINE 0.6 MG TAB PO ONE (11:15)
[2017-04-21 11:30] VITALS: BP 104/53
[2017-04-21 16:35] VITALS: BP 104/70
[2017-04-21] MEDS ORDERED: WARFARIN SODIUM 2.5 MG TAB PO ONE (17:00)
[2017-04-21] MEDS ORDERED: FLUCONAZOLE 200MG/100ML 100 ML IV ONE (19:45)
[2017-04-21] MEDS: PRAVASTATIN SODIUM 20 MG TAB PO SCH (21:52)
[2017-04-21 22:00] VITALS: BP 128/82
[2017-04-22] MEDS: ACCU-CHEK COMFORT CURVE STRIP VI SCH ×4 (00:04→17:33)
[2017-04-22] MEDS: InsuLIN REG 1unit/0.01ml Soln (100units/ml) SC SCH ×4 (00:05→17:56)
[2017-04-22 05:00] VITALS: BP 129/84
[2017-04-22] MEDS: SILDENAFIL CITRATE 20 MG TAB PO SCH ×3 (06:06→21:43)
[2017-04-22 07:49] VITALS: BP 123/59
[2017-04-22] MEDS: PRO-STAT 64 30ML PO SCH ×2 (10:00→21:44)
[2017-04-22] MEDS ORDERED: FLUCONAZOLE 200MG/100ML 100 ML IV SCH (10:00)
[2017-04-22] MEDS: Boost Glucose Control 8 Ounces PO SCH ×2 (10:15→21:44)
[2017-04-22] MEDS: COLCHICINE 0.6 MG TAB PO SCH (10:16)
[2017-04-22] MEDS: CARVEDILOL 12.5 MG TAB PO SCH ×2 (10:16→21:44)
[2017-04-22 10:42] LABS: Basophils # (auto) 0.1 uL; Basophils % (auto) 0.7 % (0.0-2.0); Eosinophils # (auto) 0.1 uL
[2017-04-22 10:43] LABS: Hematocrit 31.5 % (41.0-53.0); Hemoglobin 10.1 g/dL (13.5-17.5); Lymphocytes # (auto) 1.6 uL; Lymphocytes % (auto) 15.2 % (10.0-50.0); Mean Corpuscular Hemoglobin 25.3 pg (28.0-32.0); Mean Corpuscular Volume 79.1 fL (80.0-100.0); Monocytes # (auto) 1.2 uL; Monocytes % (auto) 11.2 % (0.0-12.0); Neutrophils # (auto) 7.5 uL; Neutrophils % (auto) 71.9 % (37.0-80.0); Nucleated Red Blood Cells % 0.2 %; Platelet Count (auto) 223 10^3/uL (140-450); Red Blood Cells 3.99 10^6/uL (4.5-5.90); White Blood Cell 10.5 10^3/uL (4.4-10.8)
[2017-04-22 10:48] LABS: BUN/Creatinine Ratio 20.6; Calcium 8.3 mg/dL (8.5-10.1); Potassium 3.3 mmol/L (3.5-5.1)
[2017-04-22 10:56] LABS: Red Cell Distribution Width 20.5 % (11.8-14.3)
[2017-04-22 11:14] LABS: INR 1.88 (0.9-1.15); Partial Thromboplastin Time 32.1 sec (22.64-33.71); Prothrombin Time 20.6 sec (9.37-12.3)
[2017-04-22] MEDS ORDERED: DEXTROSE (50%) 50ML SYRG IV PRN (11:30)
[2017-04-22] MEDS ORDERED: POTASSIUM CHL 20 Meq TABLET PO ONE (11:30)
[2017-04-22] MEDS ORDERED: ONDANSETRON HCL 4 MG/2 ML VIAL IV PRN (11:30)
[2017-04-22 11:34] VITALS: BP 121/73
[2017-04-22 16:08] VITALS: BP 114/60
[2017-04-22] MEDS ORDERED: WARFARIN SODIUM 1 MG TAB PO ONE (17:00)
[2017-04-22 21:22] VITALS: BP 126/79
[2017-04-22] MEDS ORDERED: PRAVASTATIN SODIUM 20 MG TAB PO SCH (22:00)
[2017-04-23] MEDS: ACCU-CHEK COMFORT CURVE STRIP VI SCH ×4 (00:04→18:00)
[2017-04-23] MEDS: InsuLIN REG 1unit/0.01ml Soln (100units/ml) SC SCH ×4 (00:05→17:51)
[2017-04-23 05:23] VITALS: BP 132/80
[2017-04-23] MEDS: SILDENAFIL CITRATE 20 MG TAB PO SCH ×2 (06:12→13:59)
[2017-04-23 06:57] LABS: BUN/Creatinine Ratio 24.1; Calcium 8.3 mg/dL (8.5-10.1); Potassium 3.7 mmol/L (3.5-5.1)
[2017-04-23 06:58] LABS: INR 2.17 (0.9-1.15); Prothrombin Time 23.8 sec (9.37-12.3)
[2017-04-23 07:57] VITALS: BP 103/69
[2017-04-23] MEDS: COLCHICINE 0.6 MG TAB PO SCH (09:31)
[2017-04-23] MEDS: CARVEDILOL 12.5 MG TAB PO SCH (09:32)
[2017-04-23] MEDS: PRO-STAT 64 30ML PO SCH (09:33)
[2017-04-23] MEDS: Boost Glucose Control 8 Ounces PO SCH (09:33)
[2017-04-23] MEDS ORDERED: FLUCONAZOLE 100 MG TAB PO SCH (10:00)
[2017-04-23 11:54] VITALS: BP 113/61
[2017-04-23 16:34] VITALS: BP 97/60
[2017-04-23] MEDS ORDERED: WARFARIN SODIUM 5 MG TAB PO ONE (17:00)
[2017-04-23] MEDS ORDERED: ACETAMINOPHEN 650 mg PER 20 mL UD GT PRN (17:15)
[2017-04-23 18:34] VITALS: BP 97/60
[2017-04-23 19:50] VITALS: BP 97/60
== END 2017-04-23 20:00 | DRG 870 ==
LOC: ER 16:46 → EDBD 16:46 → TELE 16:47 → TELE-WESTW 22:59 → DOU IN ICU 04-10 23:30 → ICU WEST 04-11 02:22 → TELE-EAST 04-18 06:03
PROVIDERS: ADMIT Nurse Practitioner; ATTEND Internal Medicine
PROC: 5A12012 Performance of Cardiac Output, Single, Manual (ICD-10-PCS; 2017-04-10)
PROC: 5A1955Z Respiratory Ventilation, Greater than 96 Consecutive Hours (ICD-10-PCS; principal; 2017-04-11)
PROC: 0BH17EZ Insertion of Endotracheal Airway into Trachea, Via Natural or Artificial Opening (ICD-10-PCS; 2017-04-11)
PROC: 5A09357 Assistance with Respiratory Ventilation, Less than 24 Consecutive Hours, Continuous Positive Airway Pressure (ICD-10-PCS; 2017-04-15)
DX: A41.9 Sepsis, unspecified organism (principal); J69.0 Pneumonitis due to inhalation of food and vomit; J96.01 Acute respiratory failure with hypoxia; I46.9 Cardiac arrest, cause unspecified; E43 Unspecified severe protein-calorie malnutrition; N17.0 Acute kidney failure with tubular necrosis; G92 Toxic encephalopathy; D68.69 Other thrombophilia; E11.51 Type 2 diabetes mellitus with diabetic peripheral angiopathy without gangrene; G93.1 Anoxic brain damage, not elsewhere classified; D68.9 Coagulation defect, unspecified; B37.49 Other urogenital candidiasis; I48.1 Persistent atrial fibrillation; Z68.41 Body mass index [BMI] 40.0-44.9, adult; R56.9 Unspecified convulsions; I25.2 Old myocardial infarction; I25.10 Atherosclerotic heart disease of native coronary artery without angina pectoris; D64.9 Anemia, unspecified; E78.5 Hyperlipidemia, unspecified; E86.0 Dehydration; E87.6 Hypokalemia; I11.9 Hypertensive heart disease without heart failure; H91.93 Unspecified hearing loss, bilateral; I07.1 Rheumatic tricuspid insufficiency; I48.0 Paroxysmal atrial fibrillation; G47.00 Insomnia, unspecified; I27.20 Pulmonary hypertension, unspecified; J10.1 Influenza due to other identified influenza virus with other respiratory manifestations; J32.0 Chronic maxillary sinusitis; J44.9 Chronic obstructive pulmonary disease, unspecified; K21.9 Gastro-esophageal reflux disease without esophagitis; M10.9 Gout, unspecified; Z79.01 Long term (current) use of anticoagulants; Z85.038 Personal history of other malignant neoplasm of large intestine; Z87.891 Personal history of nicotine dependence; Z98.61 Coronary angioplasty status; Z88.6 Allergy status to analgesic agent
CPT/HCPCS: 36415; 36600; 70450; 71045; 71046; 80048; 80053; 80307; 81001; 82805; 82962; 83540; 83550; 83735; 84484; 85025; 85610; 85730; 87040; 87070; 87081; 87086; 87205; 87400; 92610; 93005; 93306; 94002; 94003; 94640; 94761; 95819; 96361; 96376; 97110; 97116; 97163; 97530; C9113; J1450; J1815; J2001; J2250; J2543; J2704; J3430

== ENCOUNTER 2017-05-13 11:26 | Inpatient (IN) | payer OTHER ==
[~2017-05-13] VITALS: Ht 172.7 cm; Wt 108.0 kg
[~2017-05-13 11:26] MED LIST: WARF2.5T39 PO; WARF5TAB71 PO
[2017-05-13 12:03] LABS: Basophils # (auto) 0.1 uL; Eosinophils # (auto) 0 uL; Eosinophils % (auto) 0.2 % (0.0-7.0); Mean Corpuscular Volume 80.8 fL (80.0-100.0); Monocytes # (auto) 1.3 uL
[2017-05-13 12:04] LABS: Basophils % (auto) 0.8 % (0.0-2.0); Hematocrit 30.6 % (41.0-53.0); Lymphocytes # (auto) 1.5 uL; Lymphocytes % (auto) 10.3 % (10.0-50.0); Mean Corpuscular Hemoglobin 26.4 pg (28.0-32.0); Mean Corpuscular Hgb Conc. 32.6 g/dL (32.0-36.0); Monocytes % (auto) 9.5 % (0.0-12.0); Neutrophils # (auto) 11.2 uL; Neutrophils % (auto) 79.2 % (37.0-80.0); Platelet Count (auto) 179 10^3/uL (140-450); Red Blood Cells 3.79 10^6/uL (4.5-5.90); White Blood Cell 14.1 10^3/uL (4.4-10.8)
[2017-05-13 12:05] LABS: Red Cell Distribution Width 23.2 % (11.8-14.3)
[2017-05-13] MEDS ORDERED: DILTIAZEM HCL 25 MG/5 ML VIAL IV ONE (12:15)
[2017-05-13 12:17] LABS: INR 3.43 (0.9-1.15); Partial Thromboplastin Time 41.5 sec (22.64-33.71); Prothrombin Time 37.8 sec (9.37-12.3)
[2017-05-13 12:25] LABS: Albumin 2.6 g/dL (3.4-5.0); BUN/Creatinine Ratio 15.4; Bilirubin, Total 2.2 mg/dL (0.2-1.0); Calcium 7.8 mg/dL (8.5-10.1); Magnesium 1.7 mg/dL (1.6-2.6); Potassium 3.5 mmol/L (3.5-5.1); Total Protein 7.1 g/dL (6.4-8.2)
[2017-05-13] MEDS ORDERED: LEVOFLOXACIN 500MG 100 ML IV ONE (13:00)
[2017-05-13] MEDS ORDERED: PANTOPRAZOLE 40 MG/10 ML VIAL IV ONE (13:45)
[2017-05-13] MEDS ORDERED: OSELTAMIVIR 75 MG CAP PO ONE (13:45)
[2017-05-13] MEDS ORDERED: TEMAZEPAM 15 MG CAP PO PRN (13:45)
[2017-05-13] MEDS ORDERED: ALBUTEROL SULF 2.5 MG/0.5ML(0.5%) NEB SOLN NEB PRN (13:45)
[2017-05-13] MEDS ORDERED: LACTULOSE 20Gm/30ML SOLN PO PRN (13:45)
[2017-05-13] MEDS ORDERED: LORazepam 0.5 MG TAB PO PRN (13:45)
[2017-05-13] MEDS ORDERED: ACETAMINOPHEN 500 MG TAB PO PRN (13:45)
[2017-05-13] MEDS ORDERED: HYDROcodone-ACET 5/325MG TAB PO PRN (13:45)
[2017-05-13] MEDS ORDERED: PROMETHAZINE HCL 25 MG/ML 1ML IV PRN (13:45)
[2017-05-13] MEDS ORDERED: NITROGLYCERIN 0.4 MG SL TAB SL PRN (13:45)
[2017-05-13] MEDS ORDERED: PIPERACILLIN-TAZOB 3.375GM 50 ML IV ONE (13:45)
[2017-05-13] MEDS ORDERED: MORPHINE SULFATE 4 MG/ML SYR/VIAL IV PRN ×2 (13:45)
[2017-05-13] MEDS ORDERED: DEXTROSE (50%) 50ML SYRG IV PRN (13:45)
[2017-05-13] MEDS: PIPERACILLIN-TAZOB 3.375GM 50 ML IV SCH ×2 (13:53→19:53)
[2017-05-13] MEDS ORDERED: ENALAPRIL MALEATE 2.5 MG TAB PO ONE (14:00)
[2017-05-13] MEDS ORDERED: POTASSIUM CHL 20 Meq TABLET PO ONE (14:00)
[2017-05-13] MEDS ORDERED: FUROSEMIDE 40 MG/4 ML VIAL IV ONE (14:00)
[2017-05-13 14:02] LABS: Lactic Acid w/Reflex 2.7 mmol/L (0.4-2.0)
[2017-05-13] MEDS: LINEZOLID 600MG/300ML 300 ML IV SCH ×2 (15:06→22:37)
[2017-05-13] MEDS: NOREPINEPHRINE 8 MG/250ML KIT 250 ML IV SCH (15:06)
[2017-05-13] MEDS: SODIUM CHLOR 0.9% PF (SALINE LOCK) 10ML VIAL IV SCH ×2 (15:08→21:34)
[2017-05-13 15:40] VITALS: BP 98/58
[2017-05-13] MEDS: IPRATROPIUM BROM 0.5 MG/2.5ML INH SOL NEB SCH (18:17)
[2017-05-13] MEDS: ALBUTEROL SULF 2.5 MG/0.5ML(0.5%) NEB SOLN NEB SCH (18:17)
[2017-05-13] MEDS: InsuLIN REG 1unit/0.01ml Soln (100units/ml) SC SCH ×3 (18:58→21:34)
[2017-05-13] MEDS: ACCU-CHEK COMFORT CURVE STRIP VI SCH ×2 (18:59→21:34)
[2017-05-13] MEDS ORDERED: OSELTAMIVIR 75 MG CAP PO SCH (22:00)
[2017-05-13] MEDS: DIGOXIN (250MCG/ML) 2 ML AMPULE IV SCH (22:06)
[2017-05-13 22:34] LABS: Urine Bacteria NONE SEEN /hpf (None Seen); Urine Blood Negative /uL (Negative); Urine Mucus FEW (None Seen); Urine Specific Gravity 1.015 (1.001-1.035); Urine WBC 8 /hpf (0 - 3)
[2017-05-14] MEDS: ALBUTEROL SULF 2.5 MG/0.5ML(0.5%) NEB SOLN NEB SCH ×4 (00:16→19:45)
[2017-05-14] MEDS: IPRATROPIUM BROM 0.5 MG/2.5ML INH SOL NEB SCH ×4 (00:16→19:45)
[2017-05-14] MEDS: PIPERACILLIN-TAZOB 3.375GM 50 ML IV SCH ×3 (03:25→14:09)
[2017-05-14] MEDS: DIGOXIN (250MCG/ML) 2 ML AMPULE IV SCH ×2 (04:07→08:48)
[2017-05-14 05:21] LABS: Basophils # (auto) 0.1 uL; Eosinophils # (auto) 0.1 uL; Eosinophils % (auto) 0.6 % (0.0-7.0); Lymphocytes # (auto) 1.3 uL; Nucleated Red Blood Cells % 0.1 %; Red Blood Cells 3.54 10^6/uL (4.5-5.90)
[2017-05-14 05:23] LABS: Basophils % (auto) 0.5 % (0.0-2.0); Hematocrit 28.8 % (41.0-53.0); Hemoglobin 9.3 g/dL (13.5-17.5); Lymphocytes % (auto) 11.3 % (10.0-50.0); Mean Corpuscular Hemoglobin 26.3 pg (28.0-32.0); Mean Corpuscular Hgb Conc. 32.4 g/dL (32.0-36.0); Mean Corpuscular Volume 81.3 fL (80.0-100.0); Monocytes # (auto) 1.1 uL; Neutrophils # (auto) 9.3 uL; Neutrophils % (auto) 78.6 % (37.0-80.0); Platelet Count (auto) 136 10^3/uL (140-450); White Blood Cell 11.8 10^3/uL (4.4-10.8)
[2017-05-14 05:32] LABS: INR 2.46 (0.9-1.15); Partial Thromboplastin Time 37.9 sec (22.64-33.71); Prothrombin Time 27.1 sec (9.37-12.3)
[2017-05-14 05:36] LABS: Red Cell Distribution Width 23.4 % (11.8-14.3)
[2017-05-14 05:46] LABS: Albumin 2.6 g/dL (3.4-5.0); BUN/Creatinine Ratio 19.4; Calcium 8.2 mg/dL (8.5-10.1); Potassium 3.5 mmol/L (3.5-5.1)
[2017-05-14 05:57] LABS: Bilirubin, Total 2.4 mg/dL (0.2-1.0); Total Protein 7.1 g/dL (6.4-8.2)
[2017-05-14] MEDS: SODIUM CHLOR 0.9% PF (SALINE LOCK) 10ML VIAL IV SCH ×3 (05:59→20:22)
[2017-05-14] MEDS: ACCU-CHEK COMFORT CURVE STRIP VI SCH ×4 (06:23→20:22)
[2017-05-14] MEDS: InsuLIN REG 1unit/0.01ml Soln (100units/ml) SC SCH ×3 (06:26→17:00)
[2017-05-14] MEDS ORDERED: DIGOXIN (250MCG/ML) 2 ML AMPULE IV ONE (08:45)
[2017-05-14] MEDS: LINEZOLID 600MG/300ML 300 ML IV SCH (09:30)
[2017-05-14] MEDS: ENALAPRIL MALEATE 2.5 MG TAB PO SCH (09:55)
[2017-05-14] MEDS ORDERED: FUROSEMIDE 40 MG/4 ML VIAL IV SCH (10:00)
[2017-05-14] MEDS ORDERED: POTASSIUM CHL 20 Meq TABLET PO SCH (10:00)
[2017-05-14] MEDS ORDERED: AZITHROMYCIN 500MG/ 250ML 250 ML IV SCH (10:00)
[2017-05-14] MEDS ORDERED: PANTOPRAZOLE 40 MG/10 ML VIAL IV SCH (10:00)
[2017-05-14] MEDS: NOREPINEPHRINE 8 MG/250ML KIT 250 ML IV SCH (12:15)
[2017-05-14] MEDS ORDERED: LOVA20TA4 PO (15:03)
[2017-05-14] MEDS ORDERED: FAM20T PO (15:12)
[2017-05-14] MEDS ORDERED: IPRA0.03 (15:12)
[2017-05-14] MEDS ORDERED: FURO40TA4 PO (15:12)
[2017-05-14] MEDS ORDERED: NITR1SPR TL (15:12)
[2017-05-14] MEDS ORDERED: ISOS60TA24 PO (15:12)
[2017-05-14] MEDS ORDERED: MOME200A INH (15:12)
[2017-05-14] MEDS ORDERED: ALB5IS NEB (15:12)
[2017-05-14] MEDS ORDERED: OMEP20CA74 PO (15:12)
[2017-05-14] MEDS ORDERED: TIOT17SP IN (15:12)
[2017-05-14] MEDS ORDERED: CARV6.2551 PO (15:12)
[2017-05-14] MEDS ORDERED: SILD20TA PO (15:14)
[2017-05-14 16:15] VITALS: BP 121/77
[2017-05-14] MEDS ORDERED: WARFARIN SODIUM 2.5 MG TAB PO ONE (17:00)
[2017-05-14] MEDS ORDERED: cefTRIAXone 1GM/10ml IVPUSH 10 ML IV ONE (17:45)
[2017-05-14] MEDS: DOXYCYCLINE HYC IV SCH (20:20)
[2017-05-14] MEDS: D5W IV SCH (20:20)
[2017-05-14 22:12] VITALS: BP 131/70
[2017-05-15] MEDS: ALBUTEROL SULF 2.5 MG/0.5ML(0.5%) NEB SOLN NEB SCH ×4 (01:17→19:32)
[2017-05-15] MEDS: IPRATROPIUM BROM 0.5 MG/2.5ML INH SOL NEB SCH ×4 (01:17→19:32)
[2017-05-15 04:45] VITALS: BP 132/73
[2017-05-15] MEDS: InsuLIN REG 1unit/0.01ml Soln (100units/ml) SC SCH ×4 (05:39→20:33)
[2017-05-15] MEDS: SODIUM CHLOR 0.9% PF (SALINE LOCK) 10ML VIAL IV SCH ×3 (05:40→20:33)
[2017-05-15] MEDS: ACCU-CHEK COMFORT CURVE STRIP VI SCH ×4 (07:11→20:34)
[2017-05-15 07:45] LABS: Basophils # (auto) 0 uL; Eosinophils # (auto) 0.1 uL; Monocytes # (auto) 0.8 uL; Nucleated Red Blood Cells % 0.1 %; Platelet Count (auto) 155 10^3/uL (140-450)
[2017-05-15 07:48] LABS: Basophils % (auto) 0.3 % (0.0-2.0); Eosinophils % (auto) 0.7 % (0.0-7.0); Hematocrit 33.8 % (41.0-53.0); Hemoglobin 10.8 g/dL (13.5-17.5); Lymphocytes # (auto) 1.1 uL; Lymphocytes % (auto) 10.9 % (10.0-50.0); Mean Corpuscular Hemoglobin 26.5 pg (28.0-32.0); Mean Corpuscular Hgb Conc. 32.1 g/dL (32.0-36.0); Mean Corpuscular Volume 82.6 fL (80.0-100.0); Monocytes % (auto) 8.1 % (0.0-12.0); Neutrophils # (auto) 7.9 uL; White Blood Cell 9.9 10^3/uL (4.4-10.8)
[2017-05-15 07:55] LABS: Red Cell Distribution Width 22.7 % (11.8-14.3)
[2017-05-15 08:01] LABS: INR 1.83 (0.9-1.15); Partial Thromboplastin Time 42.5 sec (22.64-33.71); Prothrombin Time 20.1 sec (9.37-12.3)
[2017-05-15 08:04] LABS: Albumin 2.6 g/dL (3.4-5.0); BUN/Creatinine Ratio 17.8; Bilirubin, Total 2.3 mg/dL (0.2-1.0); Calcium 8.6 mg/dL (8.5-10.1); Potassium 3.1 mmol/L (3.5-5.1); Total Protein 7.6 g/dL (6.4-8.2)
[2017-05-15 08:22] VITALS: BP 135/72
[2017-05-15] MEDS: cefTRIAXone 1GM/10ml IVPUSH 10 ML IV SCH (09:59)
[2017-05-15] MEDS: PANTOPRAZOLE 40 MG TAB PO SCH (09:59)
[2017-05-15] MEDS: DIGOXIN 0.125 MG TAB PO SCH (10:00)
[2017-05-15] MEDS: ENALAPRIL MALEATE 2.5 MG TAB PO SCH (10:00)
[2017-05-15] MEDS: D5W IV SCH ×2 (10:00→20:34)
[2017-05-15] MEDS: DOXYCYCLINE HYC IV SCH ×2 (10:00→20:34)
[2017-05-15 11:59] VITALS: BP 129/76
[2017-05-15] MEDS ORDERED: COLCPOW2 PO (16:04)
[2017-05-15] MEDS ORDERED: WARFARIN SODIUM 5 MG TAB PO ONE (17:00)
[2017-05-15 17:07] VITALS: BP 128/77
[2017-05-15] MEDS: COLCHICINE 0.6 MG TAB PO SCH (20:32)
[2017-05-15 22:00] VITALS: BP 141/74
[2017-05-16] MEDS: IPRATROPIUM BROM 0.5 MG/2.5ML INH SOL NEB SCH ×4 (00:43→18:50)
[2017-05-16] MEDS: ALBUTEROL SULF 2.5 MG/0.5ML(0.5%) NEB SOLN NEB SCH ×3 (00:43→18:50)
[2017-05-16] MEDS: SODIUM CHLOR 0.9% PF (SALINE LOCK) 10ML VIAL IV SCH ×3 (04:47→22:08)
[2017-05-16] MEDS: ACCU-CHEK COMFORT CURVE STRIP VI SCH ×4 (04:58→21:44)
[2017-05-16] MEDS: InsuLIN REG 1unit/0.01ml Soln (100units/ml) SC SCH ×4 (04:59→22:09)
[2017-05-16 05:00] VITALS: BP 161/96
[2017-05-16 07:12] LABS: Basophils # (auto) 0 uL; Basophils % (auto) 0.6 % (0.0-2.0); Eosinophils # (auto) 0 uL; Eosinophils % (auto) 0.4 % (0.0-7.0); Hematocrit 30.5 % (41.0-53.0); Hemoglobin 10.1 g/dL (13.5-17.5); Lymphocytes % (auto) 12.3 % (10.0-50.0); Mean Corpuscular Hgb Conc. 33.2 g/dL (32.0-36.0); Mean Corpuscular Volume 81.2 fL (80.0-100.0); Monocytes # (auto) 0.7 uL; Monocytes % (auto) 8.8 % (0.0-12.0); Neutrophils # (auto) 6.6 uL; Neutrophils % (auto) 77.9 % (37.0-80.0); Nucleated Red Blood Cells % 0.1 %; Platelet Count (auto) 172 10^3/uL (140-450); Red Blood Cells 3.75 10^6/uL (4.5-5.90); White Blood Cell 8.4 10^3/uL (4.4-10.8)
[2017-05-16 07:18] LABS: INR 1.19 (0.9-1.15); Partial Thromboplastin Time 36.1 sec (22.64-33.71)
[2017-05-16 07:21] LABS: Red Cell Distribution Width 22.9 % (11.8-14.3)
[2017-05-16 07:29] LABS: Calcium 8.9 mg/dL (8.5-10.1); Potassium 3.1 mmol/L (3.5-5.1)
[2017-05-16 08:00] VITALS: BP 133/69
[2017-05-16] MEDS ORDERED: LIDOCAINE 2%HCL (LOCAL ANESTH.) INJ 20ML MDV ONE (08:36)
[2017-05-16] MEDS ORDERED: IODIXANOL 320MG/ML 100ML BTL IV ONE (08:36)
[2017-05-16 09:00] VITALS: BP 133/69
[2017-05-16] MEDS ORDERED: fentaNYL CITRATE 100 MCG/2 ML VL ONE (09:34)
[2017-05-16] MEDS ORDERED: MIDAZOLAM HCL 1MG/1ML-2 ML VIAL ONE (09:34)
[2017-05-16] MEDS ORDERED: ANGIOMAX 250 MG VIAL IV ONE ×2 (09:34→11:00)
[2017-05-16] MEDS ORDERED: SODIUM CHL 0.9% 50 ML ONE ×2 (09:35→11:00)
[2017-05-16] MEDS ORDERED: cloNIDine HCL 0.1 MG TAB ONE (10:07)
[2017-05-16] MEDS ORDERED: ENALAPRILAT 1.25 MG/ML-1ML VIAL IV ONE (10:34)
[2017-05-16] MEDS ORDERED: CLOPIDOGREL 300 MG TAB ONE (11:24)
[2017-05-16] MEDS ORDERED: ASPirin 325 MG TAB ONE (11:26)
[2017-05-16] MEDS ORDERED: CLOPIDOGREL 300 MG TAB PO ONE (11:30)
[2017-05-16] MEDS ORDERED: ASPirin 81 mg TAB PO ONE (11:30)
[2017-05-16] MEDS: COLCHICINE 0.6 MG TAB PO SCH ×2 (14:55→22:07)
[2017-05-16] MEDS: DIGOXIN 0.125 MG TAB PO SCH (14:55)
[2017-05-16] MEDS: PANTOPRAZOLE 40 MG TAB PO SCH (14:55)
[2017-05-16] MEDS: cefTRIAXone 1GM/10ml IVPUSH 10 ML IV SCH (14:55)
[2017-05-16] MEDS: ENALAPRIL MALEATE 2.5 MG TAB PO SCH (14:56)
[2017-05-16] MEDS: POTASSIUM CHL 20 Meq TABLET PO SCH ×2 (14:56→22:07)
[2017-05-16 15:55] VITALS: BP 119/85
[2017-05-16 17:00] VITALS: BP 125/59
[2017-05-16] MEDS ORDERED: WARFARIN SODIUM 5 MG TAB PO SCH (17:00)
[2017-05-16] MEDS: D5W IV SCH ×2 (17:49→22:50)
[2017-05-16] MEDS: DOXYCYCLINE HYC IV SCH ×2 (17:49→22:50)
[2017-05-16 20:00] VITALS: BP 144/74
[2017-05-17] MEDS: ALBUTEROL SULF 2.5 MG/0.5ML(0.5%) NEB SOLN NEB SCH ×3 (01:05→11:42)
[2017-05-17] MEDS: IPRATROPIUM BROM 0.5 MG/2.5ML INH SOL NEB SCH ×3 (01:05→11:42)
[2017-05-17 05:02] VITALS: BP 147/115
[2017-05-17] MEDS: SODIUM CHLOR 0.9% PF (SALINE LOCK) 10ML VIAL IV SCH ×2 (06:05→14:00)
[2017-05-17 06:15] LABS: Basophils # (auto) 0 uL; Basophils % (auto) 0.6 % (0.0-2.0); Eosinophils # (auto) 0.1 uL; Hemoglobin 9.9 g/dL (13.5-17.5); Mean Corpuscular Hemoglobin 26.3 pg (28.0-32.0); Monocytes # (auto) 0.7 uL; Monocytes % (auto) 9.6 % (0.0-12.0); Red Blood Cells 3.75 10^6/uL (4.5-5.90); White Blood Cell 7.2 10^3/uL (4.4-10.8)
[2017-05-17 06:18] LABS: Eosinophils % (auto) 1.6 % (0.0-7.0); Hematocrit 30.4 % (41.0-53.0); Lymphocytes # (auto) 1.1 uL; Lymphocytes % (auto) 15.2 % (10.0-50.0); Mean Corpuscular Hgb Conc. 32.5 g/dL (32.0-36.0); Mean Corpuscular Volume 81.1 fL (80.0-100.0); Neutrophils # (auto) 5.2 uL; Nucleated Red Blood Cells % 0.1 %; Platelet Count (auto) 169 10^3/uL (140-450)
[2017-05-17 06:27] LABS: INR 2.62 (0.9-1.15); Partial Thromboplastin Time 44.8 sec (22.64-33.71); Prothrombin Time 28.8 sec (9.37-12.3); Red Cell Distribution Width 22.7 % (11.8-14.3)
[2017-05-17 06:37] LABS: Calcium 9.1 mg/dL (8.5-10.1); Potassium 3.6 mmol/L (3.5-5.1)
[2017-05-17] MEDS: ACCU-CHEK COMFORT CURVE STRIP VI SCH ×2 (06:59→11:48)
[2017-05-17] MEDS: InsuLIN REG 1unit/0.01ml Soln (100units/ml) SC SCH ×2 (07:17→11:48)
[2017-05-17 08:00] VITALS: BP 138/74
[2017-05-17 08:40] VITALS: BP 138/74
[2017-05-17] MEDS ORDERED: CLOPIDOGREL BISULFATE 75 MG TAB PO SCH (10:00)
[2017-05-17] MEDS ORDERED: ASPirin 81 mg TAB PO SCH (10:00)
[2017-05-17] MEDS ORDERED: ENOXAPARIN SOD 40 MG/0.4 ML SYRINGE SC SCH (10:00)
[2017-05-17] MEDS: PANTOPRAZOLE 40 MG TAB PO SCH (10:11)
[2017-05-17] MEDS: cefTRIAXone 1GM/10ml IVPUSH 10 ML IV SCH (10:11)
[2017-05-17] MEDS: ENALAPRIL MALEATE 2.5 MG TAB PO SCH (10:12)
[2017-05-17] MEDS: COLCHICINE 0.6 MG TAB PO SCH (10:13)
[2017-05-17] MEDS: POTASSIUM CHL 20 Meq TABLET PO SCH (10:13)
[2017-05-17] MEDS: DIGOXIN 0.125 MG TAB PO SCH (10:13)
[2017-05-17 12:27] VITALS: BP 148/86
[2017-05-17] MEDS ORDERED: DOXYCYCLINE 100 MG TAB/CAP PO SCH (12:45)
[2017-05-17] MEDS ORDERED: CEFD300C2 PO (13:05)
[2017-05-17] MEDS ORDERED: ASPI81CH43 PO (13:05)
[2017-05-17] MEDS ORDERED: CLOP75TA28 PO (13:05)
[2017-05-17] MEDS ORDERED: ENA2.5T PO (13:05)
[2017-05-17] MEDS ORDERED: DIGO0.124 PO (13:05)
[2017-05-17] MEDS ORDERED: DOX100T PO (13:05)
[2017-05-17 14:53] VITALS: BP 148/86
== END 2017-05-17 16:15 | disposition home health service (06) | DRG 250 ==
LOC: EDBD 11:26 → ER 11:26 → TELE 11:27 → TELE-EAST 05-14 16:00
PROVIDERS: ADMIT Internal Medicine; ATTEND Internal Medicine
PROC: 4A023N8 Measurement of Cardiac Sampling and Pressure, Bilateral, Percutaneous Approach (ICD-10-PCS; principal; 2017-05-16)
PROC: 02703ZZ Dilation of Coronary Artery, One Artery, Percutaneous Approach (ICD-10-PCS; 2017-05-16)
PROC: B2111ZZ Fluoroscopy of Multiple Coronary Arteries using Low Osmolar Contrast (ICD-10-PCS; 2017-05-16)
PROC: B2151ZZ Fluoroscopy of Left Heart using Low Osmolar Contrast (ICD-10-PCS; 2017-05-16)
DX: I25.10 Atherosclerotic heart disease of native coronary artery without angina pectoris (principal); J96.20 Acute and chronic respiratory failure, unspecified whether with hypoxia or hypercapnia; I50.21 Acute systolic (congestive) heart failure; J18.9 Pneumonia, unspecified organism; E11.22 Type 2 diabetes mellitus with diabetic chronic kidney disease; I27.20 Pulmonary hypertension, unspecified; I48.91 Unspecified atrial fibrillation; L03.116 Cellulitis of left lower limb; I13.0 Hypertensive heart and chronic kidney disease with heart failure and stage 1 through stage 4 chronic kidney disease, or unspecified chronic kidney disease; J44.0 Chronic obstructive pulmonary disease with (acute) lower respiratory infection; C18.9 Malignant neoplasm of colon, unspecified; R65.10 Systemic inflammatory response syndrome (SIRS) of non-infectious origin without acute organ dysfunction; N18.3 Chronic kidney disease, stage 3 (moderate); K21.9 Gastro-esophageal reflux disease without esophagitis; M10.9 Gout, unspecified; E05.90 Thyrotoxicosis, unspecified without thyrotoxic crisis or storm; F32.9 Major depressive disorder, single episode, unspecified; F41.9 Anxiety disorder, unspecified; D64.9 Anemia, unspecified; E78.5 Hyperlipidemia, unspecified; E87.6 Hypokalemia; K59.00 Constipation, unspecified; H54.7 Unspecified visual loss; I25.2 Old myocardial infarction; Z79.02 Long term (current) use of antithrombotics/antiplatelets; Z87.891 Personal history of nicotine dependence; Z95.5 Presence of coronary angioplasty implant and graft; Z99.81 Dependence on supplemental oxygen; Z88.6 Allergy status to analgesic agent; Z79.01 Long term (current) use of anticoagulants; Z79.899 Other long term (current) drug therapy; Z86.74 Personal history of sudden cardiac arrest
CPT/HCPCS: 36415; 36600; 71045; 80048; 80053; 80061; 80162; 81001; 82550; 82805; 82962; 83036; 83605; 83735; 83880; 84443; 84484; 85025; 85610; 85730; 87040; 87081; 87086; 87804; 92920; 93005; 93460; 93970; 94640; 96365; 96375; 99152; 99291; C1887; C9113; J1815; J1956; J2250; J2543; J3490; Q9967

== ENCOUNTER 2024-12-19 23:13 | Emergency (ER) | payer OTHER ==
[~2024-12-19] VITALS: Ht 182.9 cm; Wt 77.5 kg
[~2024-12-19 23:13] MED LIST changes: +ALB5IS NEB; +ASPI81CH43 PO; +CARV6.2551 PO; +CEFD300C2 PO; +CLOP75TA28 PO; +COLCPOW2 PO; +DIGO1TAB48 PO; +DOX100T PO; +ENAL1TAB43 PO; +FAMO20TA10 PO; +FURO40TA4 PO; +IPRA0.03; +ISOS1TAB29 PO; +LOVA20TA4 PO; +MOME1AER3 INH; +NITR1SPR TL; +OMEP20CA74 PO; +SILD20TA PO; +TIOT17SP IN; +WARF-110 PO; +WARF-66 PO; -WARF2.5T39 PO; -WARF5TAB71 PO
[2024-12-20 00:02] VITALS: BP 121/87; PULSE 80; RESP 20; TEMP 98.1; O2SAT 97
--- NOTE | 2024-12-20 00:56 | DVH ---
CLINICAL INDICATION: Trauma/fall TECHNIQUE: XY L WRIST 3+ VIEW XRAY Comparison: None FINDINGS/IMPRESSION: : There is no evidence of acute fracture or dislocation. Mild cystic degeneration of the scaphoid. Soft tissues are unremarkable. Atherosclerotic vascular calcifications.
--- NOTE | 2024-12-20 01:02 | DVH ---
EXAM: CT HEAD WITHOUT CONTRAST INDICATION: Head trauma/fall TECHNIQUE: CT of the head without intravenous contrast. Radiation Dose : 1. Head: CT Dose: CTDI volume is 62.35 mGy. Dose-length product is 1228.51 mGy*cm The dose indicators for CT are the volume Computed Tomography (CT) Dose Index (CTDIvol) and the Dose Length Product (DLP), and are measured in units of mGy and mGy-cm, respectively. These indicators are not patient dose, but values generated from the CT scanner acquisition factors. The report includes radiation exposure data for exposures received during this examination. COMPARISON: CT CERVICAL WITHOUT CONTRAST on DOS: 12/20/24 FINDINGS: There is no evidence of acute intracranial hemorrhage, extra-axial collection, mass effect, midline s hift, herniation or hydrocephalus. Increased prominence of the ventricles, sulci and cisterns consistent with the sequelae of atrophic c ortical volume loss. The albrecht-white differentiation is intact. Moderate diffuse confluent periventricular and subcortical white matter hypoattenuation is nonspecifi c but may be related to small vessel ischemic disease. Bilateral maxillary sinus opacification. The remaining visualized paranasal sinuses and mastoid air c ells are clear. Moderate left parietal scalp hematoma. The surrounding soft tissues and osseous structures are otherw ise unremarkable. IMPRESSION: 1. No CT evidence of acute intracranial abnormality. 2. Chronic sequelae of microangiopathy and atrophic cortical volume loss. 3. Moderate left parietal scalp hematoma. 4. Bilateral maxillary sinus opacification. Radiation optimization: All CT scans at this facility use at least one of these dose optimization dannie hniques: automated exposure control mA and/or kV adjustment per patient size (includes targeted exam s where dose is matched to clinical indication) or iterative reconstruction.
--- NOTE | 2024-12-20 01:06 | DVH ---
CLINICAL INDICATION: Trauma/fall TECHNIQUE: XY L ELBOW 3 VIEW XRAY Comparison: None FINDINGS/IMPRESSION: : There is no evidence of acute fracture or dislocation. Soft tissues are unremarkable.
--- NOTE | 2024-12-20 01:21 | DVH ---
EXAM: CT CERVICAL WITHOUT CONTRAST HISTORY: Head trauma/fall COMPARISON: CT HEAD WITHOUT CONTRAST on DOS: 12/20/24 CTDIvol 21.98 mGy, DLP 643.83 mGy*cm. TECHNIQUE: Multiple axial CT images of the spine were obtained using bone algorithm. Axial and coron al reformatting was done. Bone and soft tissue windows were reviewed. FINDINGS: No CT evidence of definite acute fracture, spinal dislocation, or significant appearing acute subluxa tion is seen. The visualized paraspinal soft tissues are grossly unremarkable. Offc-sv-[id number] degenerative changes of the cervical spine include moderate to severe C6-C7 disc hei ght loss with adjacent endplate sclerosis and multilevel anterior osteophytosis. Moderate multilevel bilateral facet hypertrophy. Atherosclerotic vascular calcifications within the bilateral carotid bulbs and aortic arch. IMPRESSION: 1. No definite CT evidence of acute fracture or dislocation of the bony cervical spine. 2. Degenerative change of the cervical spine.
[2024-12-20] MEDS ORDERED: CEPH250C PO (01:50)
[2024-12-20] MEDS ORDERED: ACET500T58 PO (01:50)
--- NOTE | 2024-12-20 01:50 | ED.PDOC ---
Ariadne. trauma (HPI) HPI Comments This patient is a pleasant 84-year-old male who was brought in by EMS today for evaluation of musculoskeletal concerns status post ground level fall at home approximately 1 hour prior to arrival. Patient states he was attempting to feed his dog when he fell and landed on the left side of his head, left elbow, left hand and right hand. Patient denies any LOC. bleeding was controlled at time of arrival. Vital signs were stable. Chief Complaint: Fall Injury Time Seen by MD: 23:18 Primary Care Provider: AZEEM Reviewed notes: Nurses Notes, Rockboard Lather Notes Allergies: Coded Allergies: NSAIDs (Verified Allergy, Unknown, 04/09/17) Home Meds Active Scripts Cefdinir (Cefdinir) 300 Mg Cap, 1 CAP PO BID, #6 CAP Prov:BAIRON KEE 05/17/17 Digoxin (Lanoxin) 125 Mcg Tab, 0.125 MG PO DAILY for 30 Days, #30 TAB Prov:BAIRON KEE 05/17/17 Enalapril Maleate (VASOTEC TABLET) 2.5 Mg Tb, 2.5 MG PO DAILY for 30 Days, #30 TAB Prov:BAIRON KEE 05/17/17 Aspirin (Asa) 81 Mg Ch, 81 MG PO DAILY for 30 Days, #30 TAB Prov:BAIRON KEE 05/17/17 Clopidogrel Bisulfate (Plavix) 75 Mg Tab, 75 MG PO DAILY for 30 Days, #30 TAB make sure to see cardio for refill Prov:BAIRON KEE 05/17/17 Doxycycline Monohydrate (Doxycycline Monohydrate) 100 Mg Tab, 100 MG PO Q12HR for 3 Days, #6 TAB Prov:BAIRON KEE 05/17/17 Reported Medications Colchicine (Colchicine) Pow, 0.6 MG PO Q12HR for 30 Days, MG 05/15/17 Sildenafil Citrate (Revatio) 20 Mg Tab, 40 PO BID for PULMONARY HTN 05/14/17 Nitroglycerin (Nitroglycerin Lingual) 0.4 Mg/[place] Spr, 0.4 MG TL PRN for CHEST PAIN , SPR 05/14/17 Famotidine (PEPCID TABLET) 20 Mg Tb, 1 TAB PO BID, #60 TAB 5 Refills 05/14/17 Furosemide (Furosemide) 40 Mg Tab, 1 TAB PO DAILY, #30 TAB 5 Refills 05/14/17 Tiotropium Cameron Monohydrate (Spiriva Respimat) 2.5 Mcg/Act Spr, 2.5 MCG IN BID, SPR 05/14/17 Ipratropium Cameron (Ipratropium Cameron) 0.03 % Spr, 0.03 % NA BID, SPR 05/14/17 Omeprazole (PRILOSEC) 20 Mg Cap, 1 CAP PO BID, #90 CAP 3 Refills 05/14/17 Isosorbide Mononitrate (Isosorbide Mononitrate Er) 60 Mg Tab, 1 TAB PO DAILY, #30 TAB 5 Refills 05/14/17 Carvedilol (Carvedilol) 6.25 Mg Tab, 2 TAB PO BID, #180 TAB 1 Refill 05/14/17 Mometasone Furoate-Formoterol (Dulera) 1 Aer Aer, 2 PUFF INH BID, #13 GRAMS 5 Refills 05/14/17 Albuterol Sulfate (Ventolin) 2.5 Mg/0.5 Ml Nb, 1 VIAL NEB Q6HR for SHORTNESS OF BREATH, #120 VIAL 5 Refills 05/14/17 Lovastatin (Lovastatin) 20 Mg Tab, 20 MG PO HS, TAB 05/14/17 Warfarin Sodium (Warfarin Sodium) 5 Mg Tab, 2.5 MG PO M, W, F, SAT for 30 Days, MG 04/10/17 Warfarin Sodium (Warfarin Sodium) 2.5 Mg Tab, 5 MG PO SUN. TUE. THURSD for 30 Days, MG 04/10/17 Information Source: Patient, Emergency Med Personnel Mode of Arrival: EMS Severity: Moderate Timing: Minutes Duration: Since onset Prehospital treatment: Manufacturing Engineer Chief Location: (L) Arm, (L) Hand, (R) Hand, Head Location of laceration: None Mechanism: Blunt trauma, Fall Past Medical History PAST MEDICAL HISTORY: Cancer, CKF, DM, GERD, Gout, High Lipids, HTN, [place] Surgical History: PTCA Family History Family History: Unknown Social History Smoker: Quit Greater Than 1 Year Alcohol: Denies ETOH Use Drugs: Denies Drug Use Lives In: Home Constitutional: denies: chills, diaphoresis, fatigue, fever, malaise, sweats, weakness, others EENTM: reports: others (Left-sided superior head trauma); denies: blurred vision, double vision, ear bleeding, ear discharge, ear drainage, ear pain, ear ringing, eye pain, eye redness, hearing loss, mouth pain, mouth swelling, nasal discharge, nose bleeding, nose congestion, nose pain, photophobia, tearing, throat pain, throat swelling, voice changes Respiratory: denies: cough, hemoptysis, orthopnea, SOB at rest, shortness of breath, SOB with excertion, stridor, wheezing, others Cardiovascular: denies: chest pain, dizzy spells, diaphoresis, Dyspnea on exertion, edema, irregular heart beat, left arm pain, lightheadedness, palpitations, PND, syncope, others Gastrointestinal: denies: abdomen distended, abdominal pain, blood streaked bowels, constipated, diarrhea, dysphagia, difficulty swallowing, hematemesis, melena, nausea, poor appetite, poor fluid intake, rectal bleeding, rectal pain, vomiting, others Genitourinary: denies: burning, dysuria, flank pain, frequency, hematuria, incontinence, penile discharge, penile sore, pain, testicle pain, testicle swelling, urgency, others Neurological: denies: dizziness, fainting, headache, left sided numbness, left sided weakness, numbness, paresthesia, pre-existing deficit, right sided numbness, right sided weakness, seizure, speech problems, tingling, tremors, weakness, others Musculoskeletal: reports: others (Left elbow, left hand and right hand pain); denies: back pain, gout, joint pain, joint swelling, muscle pain, muscle stiffness, neck pain Integumetry: denies: bruises, change in color, change in hair/nails, dryness, laceration, lesions, lumps, rash, wounds, others Allergic/Immunocompromised: denies: Difficulty Healing, Frequent Infections, Hives, Itching, others Hematologic/Lymphatic: denies: anemia, blood clots, easy bleeding, easy bruising, swollen glands, others Endocrine: denies: excessive hunger, excessive sweating, excessive thirst, excessive urination, flushing, intolerance to cold, intolerance to heat, unexplained weight gain, unexplained weight loss, others Psychiatric: denies: anxiety, bipolar disorder, depression, hopeless, panic disorder, schizophrenia, sleepless, suicidal, others Physical Exam General Appearance: Mild Distress (Moderate distress due to fall concerns. Patient declined the need for any pain medication.), Normal HEENT: Head (Patient displays a 5 cm long abrasion/contusion to the superior parietal lobe of the left side of the scalp. No active bleed. Localized edema and erythema. No skull depressions noted.), Pharynx Normal, TMs Normal Neck: Other (Patient was in a C-collar time of evaluation.) Respiratory: Chest Non-Tender, Lungs Clear, No Accessory Muscle Use, No Respiratory Distress, Normal Breath Sounds Cardiovascular: No Edema, No JVD, No Murmur, No Gallop, Normal Peripheral Pulses, Regular Rate/Rhythm Breast Exam: Deferred Gastrointestinal: No Organomegaly, Non Tender, No Pulsatile Mass, Normal Bowel Sounds, Soft Genitalia: Deferred Pelvic: Deferred Rectal: Deferred Extremities: Other (Left knee tender to palpate around the olecranon region. Mild reduced range of motion. 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 Patient has some patchy ecchymotic deposition in bilateral forearms.) Lymphatic: No Adenopathy Was a procedure done? Was a procedure done?: No Differential Diagnosis Multiple Trauma: Other (Hemorrhage, subdural hematoma, skull fracture, cervical vertebrae fracture, elbow fracture, wrist fracture, hand fracture, contusions) X-Ray, Labs, Meds, VS Vital Signs Date Time Temp Pulse Resp B/P (MAP) Pulse Ox O2 Delivery O2 Flow Rate FiO2 12/20/24 00:02 98.1 80 18 121/87 (98) 97 98.1 12/20/24 00:02 80 20 97 Nasal Cannula* 2 28 12/19/24 23:28 98.5 73 16 118/74 97 98.5 X-Ray, Labs, Meds, VS Comment All studies performed in the ED today were evaluated by me personally. All imaging studies were unremarkable for any acute fractures or dislocations. Patient sustained some contusions due to his fall event. Advised patient utilize pain medication as needed as well as antibiotics as directed. Time of 1ST Reevaluation: 01:48 Reevaluation 1ST: Improved Consultation: PCP Patient Education/Counseling: Diagnosis, Treatment Family Education/Counseling: Diagnosis, Treatment Departure 1 Departure Time of Disposition: 01:48 Impression: Primary Impression: Fall Additional Impressions: Head contusion Elbow contusion Hand contusion Disposition: HOME / SELF CARE / HOMELESS Condition: Stable Additional Instructions: Advised patient utilize antibiotics as directed until completion. Patient should follow up with his primary care provider in the next few days for re-evaluation and discussions related to today's events. e-Prescriptions Acetaminophen (Acetaminophen) 500 Mg Tab 500 MG PO Q4HP PRN, #30 TAB Prov: MAURICE MORAN PAC 12/20/24 Cephalexin (KEFLEX CAPSULE) 250 Mg Cp 1 CAP PO QID for 7 Days, #28 CAP Prov: MAURICE MORAN PAC 12/20/24 Discharged With: Self, Relative Critical Care Note Critical Care Time?: No Stability Stability form required: No Heart Score Heart Score: Heart Score Response (Comments) Value History N/A 0 EKG N/A 0 Age N/A 0 Risk Factors N/A 0 Troponin N/A 0 Total 0 MAURICE MORAN PAC Dec 20, 2024 01:50
== END 2024-12-20 02:25 | disposition home or self-care (01) ==
LOC: EDBD 23:13 → ER 23:13
DX: S00.03XA Contusion of scalp, initial encounter (principal); S60.222A Contusion of left hand, initial encounter; S50.02XA Contusion of left elbow, initial encounter; M10.9 Gout, unspecified; I25.2 Old myocardial infarction; I12.9 Hypertensive chronic kidney disease with stage 1 through stage 4 chronic kidney disease, or unspecified chronic kidney disease; E11.22 Type 2 diabetes mellitus with diabetic chronic kidney disease; N18.9 Chronic kidney disease, unspecified; E78.5 Hyperlipidemia, unspecified; K21.9 Gastro-esophageal reflux disease without esophagitis; Z87.891 Personal history of nicotine dependence; Z88.6 Allergy status to analgesic agent; Z79.51 Long term (current) use of inhaled steroids; Z79.82 Long term (current) use of aspirin; Z79.02 Long term (current) use of antithrombotics/antiplatelets; Z79.899 Other long term (current) drug therapy; W19.XXXA Unspecified fall, initial encounter; Y93.89 Activity, other specified; Y92.89 Other specified places as the place of occurrence of the external cause; Y99.8 Other external cause status
CPT/HCPCS: 70450; 72125; 73080; 73110